=== PATIENT | male | born 1960 ===

== ENCOUNTER 2018-12-17 16:17 | Inpatient (IN) | payer MEDICARE ==
[2018-12-17] MEDS ORDERED: Sodium Chloride 0.9% 1,000 ML IV ONE ×2 (17:08→18:11)
[2018-12-17 17:22] LABS: BASO % 0.5 % (0.0-2.0); EOS # 0.2 K/uL (0.0-0.7); EOS % 3.1 % (0.0-4.0); HEMOGLOBIN 11.3 g/dL (12.0-18.0); LYMPH # 1.9 K/uL (1.0-4.3); LYMPH % 26.1 % (20.0-40.0); MEAN CELL VOLUME 89.9 fL (80.0-94.0); MEAN CORPUSCULAR HEMOGLOBIN 29.8 pg (27.0-31.0); MEAN CORPUSCULAR HGB CONC 33.2 g/dL (33.0-37.0); MEAN PLATELET VOLUME 7.2 fL (7.2-11.7); MONO # 0.7 K/uL (0.0-0.8); MONO % 9.6 % (0.0-10.0); NEUT # 4.4 K/uL (1.8-7.0); NEUT % 60.7 % (50.0-75.0); RBC 3.8 Mil/uL (4.40-5.90); RED CELL DISTRIBUTION WIDTH 14.3 % (11.5-14.5); WHITE BLOOD COUNT 7.2 K/uL (4.8-10.8)
[2018-12-17 17:37] LABS: VENOUS BLOOD GAS BASE EXCESS -5.8 mmol/L (0.0-2.0); VENOUS BLOOD GAS PCO2 40 mmHg (40-60); VENOUS BLOOD GAS PO2 44 mm/Hg (30-55); VENOUS BLOOD PH 7.31 (7.32-7.43)
[2018-12-17 18:06] LABS: ALB/GLOB RATIO 1.2 (1.0-2.1); ALBUMIN 4.4 g/dL (3.5-5.0); CALCIUM 9.4 mg/dl (8.6-10.4)
[2018-12-17] MEDS ORDERED: Calcium Gluconate 4.65 mEq/10 ml Inj IVP ONE (18:07)
[2018-12-17] MEDS ORDERED: (Novolin R) Insulin Human Regular 100 units/ml vial IVP STA (18:08)
[2018-12-17] MEDS ORDERED: (Novolin R) Insulin Human Regular 100 units/ml vial ONE (18:29)
[2018-12-17] MEDS ORDERED: Calcium Gluconate 4.65 mEq/10 ml Inj ONE (18:30)
[2018-12-17] MEDS ORDERED: Sodium Chloride 0.9% 1,000 ML ONE (18:30)
--- NOTE | 2018-12-17 18:59 | C.PDOC ---
History Of Present Illness Patient is a 58 year old male, with a PMHx of diabetes, who presents to the ED by request of his PMD for elevated potassium levels that resulted from bloodwork taken 1 day ago. Patient is c/o mild body weakness. He denies any CP, SOB, fever, cough. Chief Complaint (Nursing): Abnormal Labs History Per: Patient History/Exam Limitations: no limitations Onset/Duration Of Symptoms: Days (1) Current Symptoms Are (Timing): Still Present Recent travel outside of the [place]: No Additional History Per: Patient Past Medical History Reviewed: Historical Data, Nursing Documentation, Vital Signs Vital Signs: Last Vital Signs Temp 97.6 F 12/17/18 18:01 Pulse 87 12/17/18 18:01 Resp 12 12/17/18 18:00 BP 173/73 H 12/17/18 18:01 Pulse Ox 97 12/17/18 18:01 - Medical History PMH: HTN, Hypercholesterolemia Surgical History: No Surg Hx Family History: States: No Known Family Hx - Social History Hx Alcohol Use: No Hx Substance Use: No - Immunization History Hx Tetanus Toxoid Vaccination: Yes Hx Influenza Vaccination: Yes Hx Pneumococcal Vaccination: Yes Review Of Systems Except As Marked, All Systems Reviewed And Found Negative. Constitutional: Positive for: Weakness (mild). Negative for: Fever, Chills Cardiovascular: Negative for: Chest Pain Respiratory: Negative for: Cough, Shortness of Breath Gastrointestinal: Negative for: Vomiting, Abdominal Pain, Diarrhea Physical Exam - Physical Exam Appears: Non-toxic, No Acute Distress Skin: Normal Color, Warm, Dry Head: Atraumatic, Normacephalic Oral Mucosa: Moist Neck: Normal ROM, Supple Chest: Symmetrical, No Deformity Cardiovascular: Rhythm Regular Respiratory: Normal Breath Sounds Gastrointestinal/Abdominal: Normal Exam, Soft, No Tenderness Extremity: Normal ROM, Other (right toe bandage over disital aspect of right foot) Neurological/Psych: Oriented x3, Normal Speech, Normal Cognition ED Course And Treatment - Laboratory Results Result Diagrams: 12/18/18 02:16 12/18/18 02:16 Lab Results: pO2 44 mm/Hg (30-55) 12/17/18 17:34 VBG pH 7.31 (7.32-7.43) L 12/17/18 17:34 VBG pCO2 40 mmHg (40-60) 12/17/18 17:34 VBG HCO3 19.8 mmol/L 12/17/18 17:34 VBG Total CO2 21.3 mmol/L (22-28) L 12/17/18 17:34 VBG O2 Sat (Calc) 81.5 % (40-65) H 12/17/18 17:34 VBG Base Excess -5.8 mmol/L (0.0-2.0) L 12/17/18 17:34 VBG Potassium 7.0 mmol/L (3.6-5.2) H* 12/17/18 17:34 Sodium 132.0 mmol/l (132-148) 12/17/18 17:34 Chloride 103.0 mmol/L (98-107) 12/17/18 17:34 Glucose 517 mg/dl (75-110) H* 12/17/18 17:34 Lactate 1.4 mmol/L (0.7-2.1) 12/17/18 17:34 Crit Value Called To Dr daily 12/17/18 17:34 Crit Value Called By Jason vora 12/17/18 17:34 Crit Value Read Back Y 12/17/18 17:34 Blood Gas Notified Time 1737 12/17/18 17:34 Troponin I < 0.0120 ng/mL (0.00-0.120) 12/17/18 17:59 Total Bilirubin 0.4 mg/dL (0.2-1.3) 12/17/18 17:18 AST 24 U/L (17-59) 12/17/18 17:18 ALT 20 U/L (21-72) L 12/17/18 17:18 Alkaline Phosphatase 134 U/L (38-126) H 12/17/18 17:18 Total Protein 8.1 g/dL (6.3-8.3) 12/17/18 17:18 Albumin 4.4 g/dL (3.5-5.0) 12/17/18 17:18 Globulin 3.7 gm/dL (2.2-3.9) 12/17/18 17:18 Albumin/Globulin Ratio 1.2 (1.0-2.1) 12/17/18 17:18 ECG: Interpreted By Me, Viewed By Me ECG Rhythm: Sinus Rhythm Interpretation Of ECG: Normal axis and normal intervals. Peaked T wave noticed in lateral leads. Rate From EC O2 Sat by Pulse Oximetry: 97 (on RA) Pulse Ox Interpretation: Normal Progress Note: Spoke to and his medical claims examiner, reviewed case. Patient admitted to Dr. Crowley's service under telemetry Critical Care Time - Critical Care Note Total Time (in mins): 60 Documented critical care: time excludes all time spent performing seperately billable procedures. Medical Decision Making Medical Decision Making: Plan: VBG Labs EKG IV Fluids Kayexalate 30gm PO Novolin 8 unit IVP Lasix 20mg IVP Calcium Gluconate 4.65meq IVP Disposition - Disposition Disposition: HOSPITALIZED Disposition Time: 18:15 Condition: GUARDED - Clinical Impression Clinical Impression: Hyperkalemia, Hyperglycemia, Acute renal failure - Scribe Statement The provider has reviewed the documentation as recorded by the Scribnellie Harris All medical record entries made by the Scribe were at my direction and personally dictated by me. I have reviewed the chart and agree that the record accurately reflects my personal performance of the history, physical exam, medical decision making, and the department course for this patient. I have also personally directed, reviewed, and agree with the discharge instructions and disposition.
--- NOTE | 2018-12-17 20:03 | CP.PCM.HP ---
History of Present Illness - History of Present Illness History of Present Illness: H&P for Dr. Crowley HPI: 58 year old male with PMHx of HTN, HLD, CAD with multiple stents, and uncontrolled DM sent to ED by Dr. Crowley due to abnormal lab work taken one day ago. Potassium was noted to be 7.1. Patient states while he was in the ED he had a 2 minute episode of sharp chest pain going across his left chest to the right side. Pain resolved on its own. It was associated with SOB, diaphoresis and felt like previous episodes of chest pain that he's had on several occasions in the past which resulted in cardiac categorizations and stent placements. Patient also complains of chills, headache for the past week, intermittent dizziness, and palpitations today. Patient denies nausea, vomiting, diarrhea, constipation, dysuria, hematuria, new leg swelling, focal weakness, numbness. Patient reports 12 year history of uncontrolled blood sugars that range from 80-600. He also reports recent admission at [facility] 1.5 months ago for chest pain and osteomyelitis of R 2nd toe, which was amputated. He was told then that he needed an additional catheterization and stent placement after his infection resolved. A few days after being discharged from [facility], he again felt chest pain and was taken to [facility] where he was found to have and treated for pleural effusion. He had been at [facility] for the last few weeks and discharged to home on 12/15/18. PMHx: CAD with 3 stents, uncontrolled DM, HTN, HLD, osteomyelitis (treated) PSHx: 5-6 cardiac catheteriztions with 3 stents placed, b/l cataract surgery, R 2nd toe amputation, L 1st toe surgery Meds: Asa 81 PO daily, Plavix 75mg PO daily, Enulose 30ml PO Q12H PRN c onstipation, Ezetimibe 10mg PO HS, Humalog 5u SC AC, Detemir 40u SC HS, Duonebs Q4H SOB, Isosorbide mononitrate 60mg O daily, Metoprolol succinate 25mg PO daily, Protonix 40mg daily, Ranolazine 500mg BID. Humalog Sliding scale Allergies: NKDA FamHx: All 10 brothers and sisters have heart problems: CABG, stents, pacemakers; Mother of CHF SocHx: smoked 1/2ppd for 25 years, quit 1.5 months ago, denies illicit drugs and alcohol. Lives with a brother in [place]. Proxy: Brothers- Logan Carlos [phone]; Pepe Carlos [phone] PMD: Dr. Crowley, Dr. Sotelo, cardio Review of Systems: -Gen: No fever, + chills, No headache, No lethargy, No weakness. -HEENT: + dizziness, No change in vision, No change in hearing, No sore throat, No dysphagia, No nasal congestion, No mucous. -Cardio: + chest pain, No palpitations, No lower extremity edema, No orthopnea. -Resp: No cough, + dyspnea, No hemoptysis, No wheezing, No pain on inspiration. -GI: No abdominal pain, No nausea/vomiting, No diarrhea/constipation, No hematochezia, No hematemesis. -: No dysuria, No urinary freq, No incontinence, No hematuria, No change in urinary stream. -MSK: No back pain, No muscle weakness, No radiating pain. -Skin: No itching, No rash, No lesions. -Neuro: +headache, No confusion, No numbness, No tingling, No focal weakness, No radicular pain, No syncope. Present on Admission - Present on Admission Any Indicators Present on Admission: Yes History of Uncontrolled Diabetes: Yes Past Patient History - Past Social History Smoking Status: Former Smoker - CARDIAC Hx Hypercholesterolemia: Yes Hx Hypertension: Yes - ENDOCRINE/METABOLIC Hx Diabetes Mellitus Type 1: Yes - PSYCHIATRIC Hx Substance Use: No - SURGICAL HISTORY Hx Surgeries: Yes Hx Amputation: Yes (2nd right toe) Hx Cardiac Catheterization: Yes - ANESTHESIA Hx Anesthesia: Yes Hx Anesthesia Reactions: No Meds Allergies/Adverse Reactions: Allergies Allergy/AdvReac Type Severity Reaction Status Date / Time No Known Allergies Allergy Verified 12/17/18 16:38 Physical Exam - Constitutional Appears: Non-toxic, No Acute Distress - Head Exam Head Exam: ATRAUMATIC, NORMOCEPHALIC - Eye Exam Eye Exam: EOMI, Normal appearance, PERRL - ENT Exam ENT Exam: Mucous Membranes Moist - Neck Exam Neck exam: Positive for: Full Rom, Normal Inspection - Respiratory Exam Respiratory Exam: Decreased Breath Sounds (more pronounced bilateral bases), Clear to Auscultation Bilateral. absent: Chest Wall Tenderness, Rales, Rhonchi, Wheezes - Cardiovascular Exam Cardiovascular Exam: REGULAR RHYTHM, +S1, +S2 - GI/Abdominal Exam GI & Abdominal Exam: Normal Bowel Sounds, Soft. absent: Distended, Guarding, Rebound, Tenderness - Extremities Exam Extremities exam: Negative for: pedal edema, tenderness Additional comments: R 2nd toe amputation, abrasion to lateral R 5th toe. Healed surgical scar to L 1st toe. Palpable DP on the L. dry skin bilateral feet. No calf tenderness. - Neurological Exam Neurological exam: Alert, CN II-XII Intact, Oriented x3 - Psychiatric Exam Psychiatric exam: Flat Affect - Skin Skin Exam: Dry, Intact, Warm Results - Vital Signs Recent Vital Signs: Last Vital Signs Temp 97.6 F 12/17/18 18:01 Pulse 83 12/17/18 19:05 Resp 12 12/17/18 19:05 BP 164/80 H 12/17/18 19:05 Pulse Ox 97 12/17/18 19:06 - Labs Result Diagrams: 12/17/18 17:18 12/17/18 20:39 Labs: Laboratory Results - last 24 hr 12/17/18 12/17/18 12/17/18 16:35 17:18 17:18 WBC 7.2 RBC 3.80 L Hgb 11.3 L Hct 34.2 L MCV 89.9 MCH 29.8 MCHC 33.2 RDW 14.3 Plt Count 351 MPV 7.2 Neut % (Auto) 60.7 Lymph % (Auto) 26.1 [place] % (Auto) 9.6 Eos % (Auto) 3.1 Baso % (Auto) 0.5 Neut # (Auto) 4.4 Lymph # (Auto) 1.9 [place] # (Auto) 0.7 Eos # (Auto) 0.2 Baso # (Auto) 0.0 pO2 VBG pH VBG pCO2 VBG HCO3 VBG Total CO2 VBG O2 Sat (Calc) VBG Base Excess VBG Potassium Glucose Lactate Crit Value Called To Crit Value Called By Crit Value Read Back Blood Gas Notified Time Sodium 133 Potassium 7.1 H* Chloride 103 Carbon Dioxide 22 Anion Gap 15 BUN 38 H Creatinine 1.8 H Est GFR ( Amer) 47 Est GFR (Non-Af Amer) 39 POC Glucose (mg/dL) > 500 H* Random Glucose 554 H* Calcium 9.4 Total Bilirubin 0.4 AST 24 ALT 20 L Alkaline Phosphatase 134 H Troponin I Total Protein 8.1 Albumin 4.4 Globulin 3.7 Albumin/Globulin Ratio 1.2 Venous Blood Potassium B-Hydroxybutyrate 0.09 12/17/18 12/17/18 17:34 17:59 WBC RBC Hgb Hct MCV MCH MCHC RDW Plt Count MPV Neut % (Auto) Lymph % (Auto) [place] % (Auto) Eos % (Auto) Baso % (Auto) Neut # (Auto) Lymph # (Auto) [place] # (Auto) Eos # (Auto) Baso # (Auto) pO2 44 VBG pH 7.31 L VBG pCO2 40 VBG HCO3 19.8 VBG Total CO2 21.3 L VBG O2 Sat (Calc) 81.5 H VBG Base Excess -5.8 L VBG Potassium 7.0 H* Glucose 517 H* Lactate 1.4 Crit Value Called To Dr daily Crit Value Called By Jason vora Crit Value Read Back Y Blood Gas Notified Time 1737 Sodium 132.0 Potassium Chloride 103.0 Carbon Dioxide Anion Gap BUN Creatinine Est GFR ( Amer) Est GFR (Non-Af Amer) POC Glucose (mg/dL) Random Glucose Calcium Total Bilirubin AST ALT Alkaline Phosphatase Troponin I < 0.0120 Total Protein Albumin Globulin Albumin/Globulin Ratio Venous Blood Potassium 7.0 H* B-Hydroxybutyrate Assessment & Plan - Assessment and Plan (Free Text) Plan: 58 year old male admitted for hyperkalemia, BRONSON, and hyperglycemia Hyperkalemia-improving 7.1 on admission--> 4.6 EKG: NSR, flipped T waves in AVR, v1, peaked T waves in lateral leads JOSUE x1 negative, f/u serial in ED: Lasix 20mg IVP, Calcium gluconate, Kayexalate 30mg PO F/u AM labs BRONSON-improving Cr. 1.8 on admission--> 1.5 2L NS bolus in ED 1/2NS @ 100mls/hr F/u AM labs Hyperglycemia Hx of DM Glucose on admission: 554 8 units Insulin given in ED Blood gas pH 7.31, Bicarb 22, B-hydroxybutyrate negative Home med Levemir 40u SC HS Home med Lispro-> aspart 5u SC AC Aspart sliding scale Q4H Accuchecks Q4H Hypogylycemia protocol Hx CAD with stent placement Home med Aspirin 81mg daily Home med Plavix 75mg daily Home med isosorbide mononitrate 60mg daily Home med Ranolazine 500mg PO BID Hx HTN Home med Metoprolol succinate 25mg QD Hx HLD Home med Ezetimibe 10mg PO daily Hx Constipation Home med Enulose 20gm Po Q12H PRN Hx GERD Home med Protonix 40mg PO daily Hx Osteomyelitis/R 2nd toe amputation Tylenol 650 PRN pain PPx Heparin 5000u Q8H HH/CCD Discussed with Dr. Carline Mejia, PGY-1
[2018-12-17] MEDS ORDERED: Dextrose 50% SYRINGE Inj (50 ml) IV PRN (20:09)
[2018-12-17] MEDS ORDERED: Glucagon Recombinant 1 mg Inj IM PRN (20:09)
[2018-12-17] MEDS ORDERED: Albuterol-Ipratrop 3 mg / 0.5 (3 ml) UD INH PRN (20:11)
[2018-12-17] MEDS: Sodium Chloride 0.45% 1,000 ML IV SCH (21:06)
[2018-12-17] MEDS: Insulin Detemir 100 units/ml Vial (Levemir) SC SCH (21:11)
[2018-12-17 21:13] LABS: BLOOD UREA NITROGEN 36 mg/dL (9-20); CALCIUM 9.1 mg/dl (8.6-10.4); GFR NON-AFRICAN AMERICAN 48
[2018-12-17 21:18] LABS: CK-MB 1.88 ng/mL (0.0-3.38)
[2018-12-17] MEDS: (Novolog) Insulin Aspart, Recombinant 100 u/ml 10 ml vial SC SCH (22:29)
[2018-12-18] MEDS: (Novolog) Insulin Aspart, Recombinant 100 u/ml 10 ml vial SC SCH ×9 (00:27→21:30)
[2018-12-18 02:21] LABS: BASO % 0.4 % (0.0-2.0); EOS # 0.2 K/uL (0.0-0.7); EOS % 3.6 % (0.0-4.0); HEMOGLOBIN 10.2 g/dL (12.0-18.0); LYMPH # 2.3 K/uL (1.0-4.3); LYMPH % 38.4 % (20.0-40.0); MEAN CELL VOLUME 88.4 fL (80.0-94.0); MEAN CORPUSCULAR HEMOGLOBIN 30.7 pg (27.0-31.0); MEAN CORPUSCULAR HGB CONC 34.8 g/dL (33.0-37.0); MEAN PLATELET VOLUME 7.2 fL (7.2-11.7); MONO # 0.5 K/uL (0.0-0.8); MONO % 9.1 % (0.0-10.0); NEUT # 2.9 K/uL (1.8-7.0); NEUT % 48.5 % (50.0-75.0); NRBC % 0.1 % (0.0-2.0); RBC 3.31 Mil/uL (4.40-5.90); RED CELL DISTRIBUTION WIDTH 13.9 % (11.5-14.5)
[2018-12-18 02:28] LABS: PROTHROMBIN TIME 10.9 SECONDS (9.7-12.2)
[2018-12-18 02:47] LABS: CK-MB 1.55 ng/mL (0.0-3.38)
[2018-12-18 02:54] LABS: ALB/GLOB RATIO 1.2 (1.0-2.1); ALBUMIN 3.7 g/dL (3.5-5.0); ALT/SGPT 20 U/L (21-72); AST/SGOT 18 U/L (17-59); BLOOD UREA NITROGEN 33 mg/dL (9-20); GFR NON-AFRICAN AMERICAN 48
[2018-12-18] MEDS: Sodium Chloride 0.45% 1,000 ML IV SCH ×2 (05:54→18:06)
--- NOTE | 2018-12-18 07:30 | CP.PCM.PN ---
Subjective - Date & Time of Evaluation Date of Evaluation: 12/18/18 Time of Evaluation: 07:45 - Subjective Subjective: Medicine progress note for Dr. Crowley. Patient seen and examined at bedside. Overnight patient blood sugars at 70-80s. Responded well to juice. This AM patient reports some chest pain, reproducible upon touching. Denies SOB, radiation of pain, nausea, vomiting, fevers ,chills. Objective - Vital Signs/Intake and Output Vital Signs (last 24 hours): Temp Pulse Resp BP Pulse Ox 97.6 F 75 20 139/70 96 12/18/18 04:30 12/18/18 04:30 12/18/18 04:30 12/18/18 04:30 12/18/18 04:30 Intake and Output: 12/18/18 12/18/18 06:59 18:59 Intake Total 1480 Output Total 400 Balance 1080 - Medications Medications: Current Medications Acetaminophen (Tylenol 325mg Tab) 650 mg PO Q6 PRN PRN Reason: Pain, moderate (4-7) Last Admin: 12/18/18 05:58 Dose: 650 mg Albuterol/Ipratropium (Duoneb 3 Mg/0.5 Mg (3 Ml) Ud) 3 ml INH RQ4 PRN PRN Reason: Shortness of Breath Aspirin (Aspirin Chewable) 81 mg PO DAILY [facility] Last Admin: 12/17/18 21:06 Dose: 81 mg Clopidogrel Bisulfate (Plavix) 75 mg PO DAILY [facility] Dextrose (Dextrose 50% Inj) 0 ml IV STAT PRN; Protocol PRN Reason: Hypoglycemia Protocol Dextrose (Glutose 15) 0 gm PO ONCE PRN; Protocol PRN Reason: Hypoglycemia Protocol Ezetimibe (Zetia) 10 mg PO DAILY [facility] Glucagon (Glucagen Diagnostic Kit) 0 mg IM STAT PRN; Protocol PRN Reason: Hypoglycemia Protocol Heparin Sodium (Porcine) (Heparin) 5,000 units SC Q8 [facility] Last Admin: 12/18/18 05:53 Dose: 5,000 units Dextrose (Dextrose 5% In Water 1000 Ml) 1,000 mls @ 0 mls/hr IV .Q0M PRN; Protocol PRN Reason: Hypoglycemia Protocol Sodium Chloride (Sodium Chloride 0.45%) 1,000 mls @ 100 mls/hr IV .Q10H [facility] Last Admin: 12/18/18 05:54 Dose: 100 mls/hr Insulin Aspart (Novolog) 5 unit SC TIDAC [facility] Insulin Aspart (Novolog) 0 unit SC Q4 [facility]; Protocol Last Admin: 12/18/18 04:57 Dose: Not Given Insulin Detemir (Levemir) 40 unit SC HS [facility] Last Admin: 12/17/18 21:11 Dose: 40 units Isosorbide Mononitrate (Imdur) 60 mg PO DAILY [facility] Lactulose (Enulose) 20 gm PO Q12H PRN PRN Reason: Constipation Metoprolol Succinate (Toprol Xl) 25 mg PO DAILY [facility] Ranolazine (Ranexa) 500 mg PO BID [facility] - Labs Labs: 12/18/18 02:16 12/18/18 02:16 PT 10.9 SECONDS (9.7-12.2) 12/18/18 02:16 INR 1.0 12/18/18 02:16 APTT 38 SECONDS (21-34) H 12/18/18 02:16 - Constitutional Appears: Non-toxic, No Acute Distress - Head Exam Head Exam: NORMAL INSPECTION - Eye Exam Eye Exam: EOMI, Normal appearance - ENT Exam ENT Exam: Mucous Membranes Moist - Respiratory Exam Respiratory Exam: Clear to Ausculation Bilateral, NORMAL BREATHING PATTERN. absent: Rales, Rhonchi, Wheezes - Cardiovascular Exam Cardiovascular Exam: +S1, +S2 Additional comments: focal pain on intercoastal space 4, denies SOB - GI/Abdominal Exam GI & Abdominal Exam: Soft, Normal Bowel Sounds - Extremities Exam Extremities Exam: Full ROM, Normal Inspection. absent: Calf Tenderness, Pedal Edema Additional comments: R foot in wrapped, recent OM surgery, dressing clean dry, intact - Back Exam Back Exam: absent: CVA tenderness (L), CVA tenderness (R) - Neurological Exam Neurological Exam: Alert, Awake, Oriented x3 - Psychiatric Exam Psychiatric exam: Normal Affect, Normal Mood - Skin Skin Exam: Dry, Intact, Normal Color, Warm Assessment and Plan - Assessment and Plan (Free Text) Assessment: 58 year old male admitted for hyperkalemia, BRONSON, and hyperglycemia; BRONSON, hype rkalemia, hyperglycemia resolved, pending cardio eval for chest pain Plan: Chest pain troponins x 3 negative hx of CAD w/ stents pain currently reproducible, msk vs cardiac origin f/u cardio, Dr. Deepak tubbs Hyperkalemia-resolved 7.1 on admission--> 4.6 EKG: NSR, v1, peaked T waves in lateral leads JOSUE x3 negative Lasix 20mg IVP, Calcium gluconate, Kayexalate 30mg PO given BRONSON-resolved Cr. 1.8 on admission--> 1.5 1/2NS @ 100mls/hr 2 L bolus given in ED Hyperglycemia Hx of DM Glucose on admission: 554 8 units Insulin given in ED Blood gas pH 7.31, Bicarb 22, B-hydroxybutyrate negative c/w home med Levemir 40u SC HS c/w home med Lispro-> aspart 5u SC AC Glucose O.N in 70s Aspart sliding scale achs Accuchecks achs Hypogylycemia protocol Hx CAD with stent placement c/w home med Aspirin 81mg daily c/w home med Plavix 75mg daily c/w home med isosorbide mononitrate 60mg daily c/w home med Ranolazine 500mg PO BID Hx HTN c/w home med Metoprolol succinate 25mg QD Hx HLD c/w home med Ezetimibe 10mg PO daily Hx Constipation c/w home med Enulose 20gm Po Q12H PRN Hx GERD c/w home med Protonix 40mg PO daily Hx Osteomyelitis/R 2nd toe amputation Tylenol 650 PRN pain PPx Heparin 5000u Q8H HH/CCD
[2018-12-18 08:28] LABS: CK-MB 1.49 ng/mL (0.0-3.38)
[2018-12-18] MEDS: Metoprolol Succinate 25 mg XL Tab PO SCH (09:16)
[2018-12-18] MEDS: Ranolazine 500 mg Extended Release Tablets PO SCH ×2 (09:17→18:12)
--- NOTE | 2018-12-18 10:50 | CARD ---
APPROVED REPORT Date of service: 12/17/2018 EKG Measurement Heart [id number] <Conclusion> Normal sinus rhythm Normal ECG
--- NOTE | 2018-12-18 10:51 | CARD ---
APPROVED REPORT Date of service: 12/17/2018 EKG Measurement Heart [id number] <Conclusion> Normal sinus rhythm Septal infarct, age undetermined Abnormal ECG
--- NOTE | 2018-12-18 11:44 | CP.PCM.PN ---
<Shiv Umana - Last Filed: 12/18/18 17:30> Subjective - Date & Time of Evaluation Date of Evaluation: 12/18/18 Time of Evaluation: 11:44 - Subjective Subjective: Cardiology Progress Note for Dr. Sotelo Patient is a 58 y/o male with a PMHx of DM and HTN that presents for hyperkalemia and chest pain. Patient was told to come in for his elevated potassium by his PMD Dr. Beasely. He comments that he has been experiencing non radiating intermittent left sided chest pain for the past several months. He comments that the pain is normally rated at a 5/10 and generally starts as chest pressure that lasts for approximately a minute with residual pain that lasts up to an hour after each episode. Patient attempted to take tylenol to alleviate his symptoms but he doesn't believe it helped his symptoms. He denies any hearing changes, dizziness, dysphagia, odynophagia, coughing, wheezing, nausea, vomiting, diarrhea, constipation, upper extremity weakness, or lower extremity weakness. He attests to experiencing subjecting fevers and chills with associated profuse diaphoresis, headaches, vision changes that he describes as experiencing seeing bright white lights that impair his vision for over a year chest pain, palpitations, shortness of breath? associated with the chest pain, and nocturnal dyspnea. PMHx: HTN, DM PSHx: TCardiac cath 4 weeks ago (demonstrated 2 vessel disease), 3 stents placed more than a year ago at [facility], chest tube placement for removal of fluid in lungs FMHx: Mother ( at 72) DM and open heart surgery, father ( at 62 from cancer) Medications: Asa 81 mg PO QD, Plavix 75mg PO QD, enulose 30mL POq12 PRN, ezetimbe 10mg PO, humalog 5u SC, detemir 40u SC, duonebs Q4H, isosorbide mononitrate 60mg, metoprolol succinate 25mg PO QD, protonix 40 mg QD, ranolazine 500mg BID, humalog sliding scale. Allergies: NKDA Social: Denies tobacco use currently (smoked 1pack every 2 days for 25 years), denies drinking, denies illicit drug use? Objective - Vital Signs/Intake and Output Vital Signs (last 24 hours): Temp Pulse Resp BP Pulse Ox 97.8 F 76 20 132/74 97 12/18/18 07:00 12/18/18 07:30 12/18/18 07:00 12/18/18 07:00 12/18/18 11:08 Intake and Output: 12/18/18 12/18/18 06:59 18:59 Intake Total 1480 Output Total 400 Balance 1080 - Medications Medications: Current Medications Acetaminophen (Tylenol 325mg Tab) 650 mg PO Q6 PRN PRN Reason: Pain, moderate (4-7) Last Admin: 12/18/18 05:58 Dose: 650 mg Albuterol/Ipratropium (Duoneb 3 Mg/0.5 Mg (3 Ml) Ud) 3 ml INH RQ4 PRN PRN Reason: Shortness of Breath Aspirin (Aspirin Chewable) 81 mg PO DAILY [facility] Last Admin: 12/18/18 09:16 Dose: 81 mg Clopidogrel Bisulfate (Plavix) 75 mg PO DAILY [facility] Last Admin: 12/18/18 09:16 Dose: 75 mg Dextrose (Dextrose 50% Inj) 0 ml IV STAT PRN; Protocol PRN Reason: Hypoglycemia Protocol Dextrose (Glutose 15) 0 gm PO ONCE PRN; Protocol PRN Reason: Hypoglycemia Protocol Ezetimibe (Zetia) 10 mg PO DAILY [facility] Last Admin: 12/18/18 09:17 Dose: 10 mg Glucagon (Glucagen Diagnostic Kit) 0 mg IM STAT PRN; Protocol PRN Reason: Hypoglycemia Protocol Heparin Sodium (Porcine) (Heparin) 5,000 units SC Q8 [facility] Last Admin: 12/18/18 05:53 Dose: 5,000 units Dextrose (Dextrose 5% In Water 1000 Ml) 1,000 mls @ 0 mls/hr IV .Q0M PRN; Protocol PRN Reason: Hypoglycemia Protocol Sodium Chloride (Sodium Chloride 0.45%) 1,000 mls @ 100 mls/hr IV .Q10H [facility] Last Admin: 12/18/18 05:54 Dose: 100 mls/hr Insulin Aspart (Novolog) 5 unit SC TIDAC [facility] Last Admin: 12/18/18 08:26 Dose: Not Given Insulin Aspart (Novolog) 0 unit SC Q4 REA; Protocol Last Admin: 12/18/18 08:26 Dose: Not Given Insulin Detemir (Levemir) 40 unit SC HS [facility] Last Admin: 12/17/18 21:11 Dose: 40 units Isosorbide Mononitrate (Imdur) 60 mg PO DAILY [facility] Last Admin: 12/18/18 09:16 Dose: 60 mg Lactulose (Enulose) 20 gm PO Q12H PRN PRN Reason: Constipation Metoprolol Succinate (Toprol Xl) 25 mg PO DAILY [facility] Last Admin: 12/18/18 09:16 Dose: 25 mg Ranolazine (Ranexa) 500 mg PO BID [facility] Last Admin: 12/18/18 09:17 Dose: 500 mg - Labs Labs: 12/18/18 02:16 12/18/18 02:16 PT 10.9 SECONDS (9.7-12.2) 12/18/18 02:16 INR 1.0 12/18/18 02:16 APTT 38 SECONDS (21-34) H 12/18/18 02:16 - Constitutional Appears: Well, Non-toxic, No Acute Distress - Head Exam Head Exam: ATRAUMATIC, NORMAL INSPECTION, NORMOCEPHALIC - Eye Exam Eye Exam: EOMI, Normal appearance - ENT Exam ENT Exam: Mucous Membranes Dry - Respiratory Exam Respiratory Exam: Chest Wall Tenderness, Decreased Breath Sounds, Clear to Ausculation Bilateral - Cardiovascular Exam Cardiovascular Exam: +S1, +S2 - Extremities Exam Extremities Exam: Normal Capillary Refill. absent: Pedal Edema - Neurological Exam Neurological Exam: Alert, Awake, Oriented x3 - Psychiatric Exam Psychiatric exam: Normal Affect, Normal Mood - Skin Skin Exam: Dry, Intact, Normal Color, Warm Assessment and Plan - Assessment and Plan (Free Text) Assessment: 58 y/o male with a PMHx of DM and HTN that presents for hyperkalemia and chest pain. Patient was told to come in for his elevated potassium by his PMD Dr. Beasley. Cardiology consulted for Hyperkalemia, chest pain, and hx of CAD. Plan: Chest Pain/SOB ECHO and EKG unremarkable. Chest pain is reproducible. Troponins NEgative x 4, SOB improved Like MSK Etiology To be discussed with Dr. Deepak Umana, PGY-2 <Roel Sotelo - Last Filed: 12/19/18 22:35> Objective - Vital Signs/Intake and Output Vital Signs (last 24 hours): Temp Pulse Resp BP Pulse Ox 98.2 F 83 20 163/79 H 98 12/19/18 15:00 12/19/18 16:00 12/19/18 15:00 12/19/18 15:00 12/19/18 15:00 - Medications Medications: Current Medications Acetaminophen (Tylenol 325mg Tab) 650 mg PO Q6 PRN PRN Reason: Pain, moderate (4-7) Last Admin: 12/18/18 05:58 Dose: 650 mg Albuterol/Ipratropium (Duoneb 3 Mg/0.5 Mg (3 Ml) Ud) 3 ml INH RQ4 PRN PRN Reason: Shortness of Breath Aspirin (Aspirin Chewable) 81 mg PO DAILY [facility] Last Admin: 12/19/18 08:59 Dose: 81 mg Clopidogrel Bisulfate (Plavix) 75 mg PO DAILY [facility] Last Admin: 12/19/18 08:59 Dose: 75 mg Dextrose (Dextrose 50% Inj) 0 ml IV STAT PRN; Protocol PRN Reason: Hypoglycemia Protocol Dextrose (Glutose 15) 0 gm PO ONCE PRN; Protocol PRN Reason: Hypoglycemia Protocol Ezetimibe (Zetia) 10 mg PO DAILY [facility] Last Admin: 12/19/18 08:59 Dose: 10 mg Glucagon (Glucagen Diagnostic Kit) 0 mg IM STAT PRN; Protocol PRN Reason: Hypoglycemia Protocol Heparin Sodium (Porcine) (Heparin) 5,000 units SC Q8 [facility] Last Admin: 12/19/18 22:05 Dose: Not Given Dextrose (Dextrose 5% In Water 1000 Ml) 1,000 mls @ 0 mls/hr IV .Q0M PRN; Protocol PRN Reason: Hypoglycemia Protocol Insulin Aspart (Novolog) 5 unit SC TIDAC [facility] Last Admin: 12/19/18 16:59 Dose: 5 units Insulin Aspart (Novolog) 0 unit SC Q4 [facility]; Protocol Last Admin: 12/19/18 20:01 Dose: Not Given Insulin Detemir (Levemir) 40 unit SC HS [facility] Last Admin: 12/19/18 22:03 Dose: 40 units Isosorbide Mononitrate (Imdur) 60 mg PO DAILY [facility] Last Admin: 12/19/18 09:00 Dose: 60 mg Lactulose (Enulose) 20 gm PO Q12H PRN PRN Reason: Constipation Metoprolol Succinate (Toprol Xl) 25 mg PO DAILY [facility] Last Admin: 12/19/18 09:00 Dose: 25 mg Ranolazine (Ranexa) 500 mg PO BID [facility] Last Admin: 12/19/18 18:00 Dose: 500 mg - Labs Labs: 12/19/18 07:46 12/19/18 11:15 PT 10.9 SECONDS (9.7-12.2) 12/18/18 02:16 INR 1.0 12/18/18 02:16 APTT 38 SECONDS (21-34) H 12/18/18 02:16 Assessment and Plan - Assessment and Plan (Free Text) Plan: Patient seen and evaluated personally by me. Plan of care d/w the rn medical surgical Patient for stress test on Friday
--- NOTE | 2018-12-18 14:56 | CARD ---
APPROVED REPORT Date of service: 12/18/2018 EXAM: Two-dimensional and M-mode echocardiogram with Doppler and color Doppler. INDICATION CAD RISK FACTORS Diabetes 2D DIMENSIONS IVSd1.1 (0.7-1.1cm)Aortic Root (2D)2.7 (2.0-3.7cm) LVDd3.9 (3.9-5.9cm)PWd1.2 (0.7-1.1cm) LA Bldlxu60 (18-58mL)LVDs3.0 (2.5-4.0cm) FS (%) 23.8 %LVEF (%)48.0 (>50%) M-Mode DIMENSIONS RVDd2.03 (2.1-3.2cm)Left Atrium (MM)4.07 (2.5-4.0cm) IVSd1.00 (0.7-1.1cm)Aortic Root2.67 (2.2-3.7cm) LVDd4.13 (4.0-5.6cm)Aortic Cusp Exc.1.55 (1.5-2.0cm) PWd1.00 (0.7-1.1cm)FS (%) 29 % LVDs2.95 (2.0-3.8cm)LVEF (%)56 (>50%) Aortic Valve AoV Peak Qjjkpwhc461.0cm/Mark Peak GR.6mmHg Mitral Valve MV E Rfgdwzet45.3cm/sMV A Dthxsjuq01.2cm/sE/A ratio0.7 TDI Lateral E' Peak V7.77cm/sMedial E' Peak V6.67cm/sE/Lateral E'6.1 E/Medial E'7.1 Tricuspid Valve TR Peak Fkdwzgqx357ad/sTR Peak Gr.09opUsUCCX13lqKf LEFT VENTRICLE The left ventricle is normal size. There is normal left ventricular wall thickness. The left ventricular function is normal. The left ventricular ejection fraction is within the normal range. No regional wall motion abnormalities noted. The left ventricular diastolic function is normal. No left ventricle thrombus noted on this study. There is no ventricular septal defect visualized. There is no left ventricular aneurysm. There is no mass noted in the left ventricle. RIGHT VENTRICLE The right ventricle is normal size. There is normal right ventricular wall thickness. The right ventricular systolic function is normal. ATRIA The left atrium size is normal. The right atrium size is normal. The interatrial septum is intact with no evidence for an atrial septal defect. AORTIC VALVE The aortic valve is normal in structure and function. No aortic regurgitation is present. There is no aortic valvular stenosis. There is no aortic valvular vegetation. MITRAL VALVE The mitral valve is normal in structure and function. There is no evidence of mitral valve prolapse. There is no mitral valve stenosis. There is no mitral valve regurgitation noted. TRICUSPID VALVE The tricuspid valve is normal in structure and function. There is no tricuspid valve regurgitation noted. There is no tricuspid valve prolapse or vegetation. There is no tricuspid valve stenosis. PULMONIC VALVE The pulmonary valve is normal in structure and function. There is no pulmonic valvular regurgitation. There is no pulmonic valvular stenosis. GREAT VESSELS The aortic root is normal in size. The ascending aorta is normal in size. The pulmonary artery is normal. The IVC is normal in size and collapses >50% with inspiration. PERICARDIAL EFFUSION The pericardium appears normal. There is no pleural effusion. <Conclusion> The left ventricular function is normal. The left ventricular ejection fraction is within the normal range. No regional wall motion abnormalities noted.
[2018-12-18] MEDS: Insulin Detemir 100 units/ml Vial (Levemir) SC SCH (22:00)
[2018-12-19] MEDS: (Novolog) Insulin Aspart, Recombinant 100 u/ml 10 ml vial SC SCH ×9 (00:28→20:01)
[2018-12-19] MEDS: Sodium Chloride 0.45% 1,000 ML IV SCH ×2 (04:08→13:26)
--- NOTE | 2018-12-19 07:40 | CP.PCM.PN ---
Subjective - Date & Time of Evaluation Date of Evaluation: 12/19/18 Time of Evaluation: 08:00 - Subjective Subjective: Medicine Progress Note for Dr. Crowley: Patient was seen and examined at bedside in the AM. Patient states he is feeling well. Patient denies chest pain, shortness of breath, nausea, vomiting, fever or chills. Objective - Vital Signs/Intake and Output Vital Signs (last 24 hours): Temp Pulse Resp BP Pulse Ox 97.8 F 77 20 150/69 99 12/18/18 23:35 12/19/18 03:59 12/18/18 23:35 12/18/18 23:35 12/18/18 23:35 Intake and Output: 12/19/18 12/19/18 06:59 18:59 Intake Total 400 Output Total 800 Balance -400 - Medications Medications: Current Medications Acetaminophen (Tylenol 325mg Tab) 650 mg PO Q6 PRN PRN Reason: Pain, moderate (4-7) Last Admin: 12/18/18 05:58 Dose: 650 mg Albuterol/Ipratropium (Duoneb 3 Mg/0.5 Mg (3 Ml) Ud) 3 ml INH RQ4 PRN PRN Reason: Shortness of Breath Aspirin (Aspirin Chewable) 81 mg PO DAILY [facility] Last Admin: 12/18/18 09:16 Dose: 81 mg Clopidogrel Bisulfate (Plavix) 75 mg PO DAILY [facility] Last Admin: 12/18/18 09:16 Dose: 75 mg Dextrose (Dextrose 50% Inj) 0 ml IV STAT PRN; Protocol PRN Reason: Hypoglycemia Protocol Dextrose (Glutose 15) 0 gm PO ONCE PRN; Protocol PRN Reason: Hypoglycemia Protocol Ezetimibe (Zetia) 10 mg PO DAILY [facility] Last Admin: 12/18/18 09:17 Dose: 10 mg Glucagon (Glucagen Diagnostic Kit) 0 mg IM STAT PRN; Protocol PRN Reason: Hypoglycemia Protocol Heparin Sodium (Porcine) (Heparin) 5,000 units SC Q8 [facility] Last Admin: 12/19/18 05:46 Dose: 5,000 units Dextrose (Dextrose 5% In Water 1000 Ml) 1,000 mls @ 0 mls/hr IV .Q0M PRN; Protocol PRN Reason: Hypoglycemia Protocol Sodium Chloride (Sodium Chloride 0.45%) 1,000 mls @ 100 mls/hr IV .Q10H [facility] Last Admin: 12/19/18 04:08 Dose: 100 mls/hr Insulin Aspart (Novolog) 5 unit SC TIDAC [facility] Last Admin: 12/18/18 17:30 Dose: 5 units Insulin Aspart (Novolog) 0 unit SC Q4 [facility]; Protocol Last Admin: 12/19/18 07:13 Dose: Not Given Insulin Detemir (Levemir) 40 unit SC HS [facility] Last Admin: 12/18/18 22:00 Dose: 40 units Isosorbide Mononitrate (Imdur) 60 mg PO DAILY [facility] Last Admin: 12/18/18 09:16 Dose: 60 mg Lactulose (Enulose) 20 gm PO Q12H PRN PRN Reason: Constipation Metoprolol Succinate (Toprol Xl) 25 mg PO DAILY [facility] Last Admin: 12/18/18 09:16 Dose: 25 mg Ranolazine (Ranexa) 500 mg PO BID [facility] Last Admin: 12/18/18 18:12 Dose: 500 mg - Labs Labs: 12/18/18 02:16 12/18/18 02:16 PT 10.9 SECONDS (9.7-12.2) 12/18/18 02:16 INR 1.0 12/18/18 02:16 APTT 38 SECONDS (21-34) H 12/18/18 02:16 - Constitutional Appears: No Acute Distress - Head Exam Head Exam: ATRAUMATIC, NORMAL INSPECTION - Eye Exam Eye Exam: EOMI, Normal appearance - ENT Exam ENT Exam: Mucous Membranes Moist - Respiratory Exam Respiratory Exam: Clear to Ausculation Bilateral, NORMAL BREATHING PATTERN - Cardiovascular Exam Cardiovascular Exam: REGULAR RHYTHM, +S1, +S2 - GI/Abdominal Exam GI & Abdominal Exam: Soft, Normal Bowel Sounds. absent: Tenderness - Extremities Exam Extremities Exam: Normal Inspection - Neurological Exam Neurological Exam: Alert, Awake, Oriented x3 - Psychiatric Exam Psychiatric exam: Normal Affect, Normal Mood - Skin Skin Exam: Normal Color Assessment and Plan - Assessment and Plan (Free Text) Assessment: 58 year old male admitted for hyperkalemia, BRONSON, and hyperglycemia; BRONSON, hyper kalemia, hyperglycemia resolved who presented to the ER for chest pain. Plan: Chest pain - troponins x 4 negative - hx of CAD w/ 3 stents - ProBNP 354 - ECHO (12/18/18): EF 48%; Left ventricular function is normal. No regional wall motion abnormalities noted. - Cardiology Consult: Dr. Sotelo --> help appreciated * Nuclear Stress Test 12/21/18 * NPO after midnight 12/20/18 History of CAD with stent placement - Cardiology Consult: Dr. Sotelo --> help appreciated * Nuclear Stress Test 12/21/18 * NPO after midnight 12/20/18 - Medications: * Aspirin 81mg daily * Plavix 75mg daily * isosorbide mononitrate 60mg daily * Ranolazine 500mg PO BID History of Diabetes Type II - Blood gas pH 7.31, Bicarb 22, B-hydroxybutyrate negative - Medications: * Levemir 40u SC HS * Novolog 5units SC TIDAC * Regular Insulin ACHS - Accuchecks achs - Hypogylycemia protocol History of HTN - Metoprolol succinate 25mg QD History of HLD - Continue Ezetimibe 10mg PO daily Hyperkalemia -resolved - 7.1 on admission--> 4.6 - EKG: NSR, v1, peaked T waves in lateral leads - JOSUE x3 negative - Lasix 20mg IVP, Calcium gluconate, Kayexalate 30mg PO given BRONSON- resolved - Cr. 1.8 on admission--> 1.1 History of Constipation - Enulose 20gm Po Q12H PRN History of GERD - Protonix 40mg PO daily History of Osteomyelitis/R 2nd toe amputation Tylenol 650 PRN pain Prophylaxis - Heparin 5000 units Q8H - Protonix 40mg po daily - SCDs - Physical Therapy Case discussed with Dr. Carline Beverly PGY-2
[2018-12-19 07:52] LABS: BASO % 0.6 % (0.0-2.0); EOS # 0.3 K/uL (0.0-0.7); EOS % 3.8 % (0.0-4.0); HEMOGLOBIN 10.7 g/dL (12.0-18.0); LYMPH % 37.8 % (20.0-40.0); MEAN CORPUSCULAR HEMOGLOBIN 29.7 pg (27.0-31.0); MEAN CORPUSCULAR HGB CONC 33.8 g/dL (33.0-37.0); MEAN PLATELET VOLUME 7.1 fL (7.2-11.7); MONO # 0.7 K/uL (0.0-0.8); MONO % 9.5 % (0.0-10.0); NEUT # 3.8 K/uL (1.8-7.0); NEUT % 48.3 % (50.0-75.0); RBC 3.59 Mil/uL (4.40-5.90); RED CELL DISTRIBUTION WIDTH 13.8 % (11.5-14.5); WHITE BLOOD COUNT 7.9 K/uL (4.8-10.8)
[2018-12-19] MEDS: Ranolazine 500 mg Extended Release Tablets PO SCH ×2 (08:59→18:00)
[2018-12-19] MEDS: Metoprolol Succinate 25 mg XL Tab PO SCH (09:00)
[2018-12-19 11:59] LABS: ALB/GLOB RATIO 1.1 (1.0-2.1); ALBUMIN 3.4 g/dL (3.5-5.0); ALT/SGPT 10 U/L (21-72); AST/SGOT 16 U/L (17-59); BLOOD UREA NITROGEN 25 mg/dL (9-20); CALCIUM 8.7 mg/dl (8.6-10.4); GFR NON-AFRICAN AMERICAN > 60
[2018-12-19] MEDS: Insulin Detemir 100 units/ml Vial (Levemir) SC SCH (22:03)
--- NOTE | 2018-12-19 22:37 | CP.PCM.PN ---
Subjective - Date & Time of Evaluation Date of Evaluation: 12/19/18 Time of Evaluation: 18:20 - Subjective Subjective: Patient was seen and examined at bedside. intermittent chest pains/reproducible Objective - Constitutional Appears: No Acute Distress - Head Exam Head Exam: ATRAUMATIC, NORMAL INSPECTION - Eye Exam Eye Exam: EOMI, Normal appearance - ENT Exam ENT Exam: Mucous Membranes Moist - Respiratory Exam Respiratory Exam: Clear to Ausculation Bilateral, NORMAL BREATHING PATTERN - Cardiovascular Exam Cardiovascular Exam: REGULAR RHYTHM, +S1, +S2 - GI/Abdominal Exam GI & Abdominal Exam: Soft, Normal Bowel Sounds. absent: Tenderness - Extremities Exam Extremities Exam: Normal Inspection - Neurological Exam Neurological Exam: Alert, Awake, Oriented x3 - Psychiatric Exam Psychiatric exam: Normal Affect, Normal Mood - Skin Skin Exam: Normal Color Assessment and Plan - Assessment and Plan (Free Text) Assessment: 58 year old male admitted for hyperkalemia, BRONSON, and hyperglycemia; BRONSON, hyperkalemia, hyperglycemia resolved who presented to the ER for chest pain. Plan: Chest pain - troponins x 4 negative - hx of CAD w/ 3 stents - ProBNP 354 - ECHO (12/18/18): EF 48%; Left ventricular function is normal. No regional wall motion abnormalities noted. - Cardiology Consult: Dr. Sotelo --> help appreciated * Nuclear Stress Test 12/21/18 * NPO after midnight 12/20/18 History of CAD with stent placement * Nuclear Stress Test 12/21/18 * NPO after midnight 12/20/18 - Medications: * Aspirin 81mg daily * Plavix 75mg daily * isosorbide mononitrate 60mg daily * Ranolazine 500mg PO BID History of Diabetes Type II - Blood gas pH 7.31, Bicarb 22, B-hydroxybutyrate negative - Medications: * Levemir 40u SC HS * Novolog 5units SC TIDAC * Regular Insulin ACHS - Accuchecks achs - Hypogylycemia protocol History of HTN - Metoprolol succinate 25mg QD History of HLD - Continue Ezetimibe 10mg PO daily Hyperkalemia -resolved - 7.1 on admission--> 4.6 - EKG: NSR, v1, peaked T waves in lateral leads - JOSUE x3 negative - Lasix 20mg IVP, Calcium gluconate, Kayexalate 30mg PO given BRONSON- resolved - Cr. 1.8 on admission--> 1.1 History of Constipation - Enulose 20gm Po Q12H PRN History of GERD - Protonix 40mg PO daily History of Osteomyelitis/R 2nd toe amputation Tylenol 650 PRN pain Prophylaxis - Heparin 5000 units Q8H - Protonix 40mg po daily - SCDs - Physical Therapy Objective - Vital Signs/Intake and Output Vital Signs (last 24 hours): Temp Pulse Resp BP Pulse Ox 98.2 F 83 20 163/79 H 98 12/19/18 15:00 12/19/18 16:00 12/19/18 15:00 12/19/18 15:00 12/19/18 15:00 - Medications Medications: Current Medications Acetaminophen (Tylenol 325mg Tab) 650 mg PO Q6 PRN PRN Reason: Pain, moderate (4-7) Last Admin: 12/18/18 05:58 Dose: 650 mg Albuterol/Ipratropium (Duoneb 3 Mg/0.5 Mg (3 Ml) Ud) 3 ml INH RQ4 PRN PRN Reason: Shortness of Breath Aspirin (Aspirin Chewable) 81 mg PO DAILY [facility] Last Admin: 12/19/18 08:59 Dose: 81 mg Clopidogrel Bisulfate (Plavix) 75 mg PO DAILY [facility] Last Admin: 12/19/18 08:59 Dose: 75 mg Dextrose (Dextrose 50% Inj) 0 ml IV STAT PRN; Protocol PRN Reason: Hypoglycemia Protocol Dextrose (Glutose 15) 0 gm PO ONCE PRN; Protocol PRN Reason: Hypoglycemia Protocol Ezetimibe (Zetia) 10 mg PO DAILY [facility] Last Admin: 12/19/18 08:59 Dose: 10 mg Glucagon (Glucagen Diagnostic Kit) 0 mg IM STAT PRN; Protocol PRN Reason: Hypoglycemia Protocol Heparin Sodium (Porcine) (Heparin) 5,000 units SC Q8 [facility] Last Admin: 12/19/18 22:05 Dose: Not Given Dextrose (Dextrose 5% In Water 1000 Ml) 1,000 mls @ 0 mls/hr IV .Q0M PRN; Protocol PRN Reason: Hypoglycemia Protocol Insulin Aspart (Novolog) 5 unit SC TIDAC [facility] Last Admin: 12/19/18 16:59 Dose: 5 units Insulin Aspart (Novolog) 0 unit SC Q4 [facility]; Protocol Last Admin: 12/19/18 20:01 Dose: Not Given Insulin Detemir (Levemir) 40 unit SC HS [facility] Last Admin: 12/19/18 22:03 Dose: 40 units Isosorbide Mononitrate (Imdur) 60 mg PO DAILY [facility] Last Admin: 12/19/18 09:00 Dose: 60 mg Lactulose (Enulose) 20 gm PO Q12H PRN PRN Reason: Constipation Metoprolol Succinate (Toprol Xl) 25 mg PO DAILY [facility] Last Admin: 12/19/18 09:00 Dose: 25 mg Ranolazine (Ranexa) 500 mg PO BID [facility] Last Admin: 12/19/18 18:00 Dose: 500 mg - Labs Labs: 12/19/18 07:46 12/19/18 11:15 PT 10.9 SECONDS (9.7-12.2) 12/18/18 02:16 INR 1.0 12/18/18 02:16 APTT 38 SECONDS (21-34) H 12/18/18 02:16
[2018-12-20] MEDS: (Novolog) Insulin Aspart, Recombinant 100 u/ml 10 ml vial SC SCH ×3 (00:35→08:42)
--- NOTE | 2018-12-20 07:30 | CP.PCM.PN ---
Subjective - Date & Time of Evaluation Date of Evaluation: 12/20/18 Time of Evaluation: 08:00 - Subjective Subjective: Medicine Progress Note for Dr. Crowley's Service: Patient was seen and examined at bedside in the AM. Per nurse patient's fasting blood sugar was 80 this morning and after breakfast it resulted as 125. Patient states he is feeling well. Patient denies chest pain, shortness of breath, nausea, vomiting, diarrhea, constipation, fever or chills. Objective - Vital Signs/Intake and Output Vital Signs (last 24 hours): Temp Pulse Resp BP Pulse Ox 98.4 F 74 20 158/74 H 98 12/20/18 00:22 12/20/18 03:50 12/20/18 00:22 12/20/18 00:22 12/20/18 00:22 Intake and Output: 12/20/18 12/20/18 06:59 18:59 Intake Total 480 Balance 480 - Medications Medications: Current Medications Acetaminophen (Tylenol 325mg Tab) 650 mg PO Q6 PRN PRN Reason: Pain, moderate (4-7) Last Admin: 12/18/18 05:58 Dose: 650 mg Albuterol/Ipratropium (Duoneb 3 Mg/0.5 Mg (3 Ml) Ud) 3 ml INH RQ4 PRN PRN Reason: Shortness of Breath Aspirin (Aspirin Chewable) 81 mg PO DAILY [facility] Last Admin: 12/19/18 08:59 Dose: 81 mg Clopidogrel Bisulfate (Plavix) 75 mg PO DAILY [facility] Last Admin: 12/19/18 08:59 Dose: 75 mg Dextrose (Dextrose 50% Inj) 0 ml IV STAT PRN; Protocol PRN Reason: Hypoglycemia Protocol Dextrose (Glutose 15) 0 gm PO ONCE PRN; Protocol PRN Reason: Hypoglycemia Protocol Ezetimibe (Zetia) 10 mg PO DAILY [facility] Last Admin: 12/19/18 08:59 Dose: 10 mg Glucagon (Glucagen Diagnostic Kit) 0 mg IM STAT PRN; Protocol PRN Reason: Hypoglycemia Protocol Heparin Sodium (Porcine) (Heparin) 5,000 units SC Q8 [facility] Last Admin: 12/20/18 06:09 Dose: Not Given Dextrose (Dextrose 5% In Water 1000 Ml) 1,000 mls @ 0 mls/hr IV .Q0M PRN; Protocol PRN Reason: Hypoglycemia Protocol Insulin Aspart (Novolog) 5 unit SC TIDAC [facility] Last Admin: 12/19/18 16:59 Dose: 5 units Insulin Aspart (Novolog) 0 unit SC Q4 [facility]; Protocol Last Admin: 12/20/18 04:10 Dose: Not Given Insulin Detemir (Levemir) 40 unit SC HS [facility] Last Admin: 12/19/18 22:03 Dose: 40 units Isosorbide Mononitrate (Imdur) 60 mg PO DAILY [facility] Last Admin: 12/19/18 09:00 Dose: 60 mg Lactulose (Enulose) 20 gm PO Q12H PRN PRN Reason: Constipation Metoprolol Succinate (Toprol Xl) 25 mg PO DAILY [facility] Last Admin: 12/19/18 09:00 Dose: 25 mg Ranolazine (Ranexa) 500 mg PO BID [facility] Last Admin: 12/19/18 18:00 Dose: 500 mg - Labs Labs: 12/19/18 07:46 12/19/18 11:15 PT 10.9 SECONDS (9.7-12.2) 12/18/18 02:16 INR 1.0 12/18/18 02:16 APTT 38 SECONDS (21-34) H 12/18/18 02:16 - Constitutional Appears: No Acute Distress - Head Exam Head Exam: ATRAUMATIC, NORMAL INSPECTION - Eye Exam Eye Exam: EOMI, Normal appearance - ENT Exam ENT Exam: Mucous Membranes Moist - Respiratory Exam Respiratory Exam: Clear to Ausculation Bilateral, NORMAL BREATHING PATTERN - Cardiovascular Exam Cardiovascular Exam: REGULAR RHYTHM, +S1, +S2 - GI/Abdominal Exam GI & Abdominal Exam: Soft, Normal Bowel Sounds. absent: Tenderness - Extremities Exam Extremities Exam: Normal Inspection - Neurological Exam Neurological Exam: Alert, Awake, Oriented x3 - Psychiatric Exam Psychiatric exam: Normal Affect - Skin Skin Exam: Normal Color Assessment and Plan - Assessment and Plan (Free Text) Assessment: 58 year old male admitted for hyperkalemia, BRONSON, and hyperglycemia; BRONSON, hyperkalemia, hyperglycemia resolved who presented to the ER for chest pain. Plan: Chest pain - troponins x 4 negative - hx of CAD w/ 3 stents - ProBNP 354 - ECHO (12/18/18): EF 48%; Left ventricular function is normal. No regional wall motion abnormalities noted. - Cardiology Consult: Dr. Sotelo --> help appreciated * Nuclear Stress Test 12/21/18 * NPO after midnight 12/20/18 History of CAD with stent placement - Cardiology Consult: Dr. Sotelo --> help appreciated * Nuclear Stress Test 12/21/18 * NPO after midnight 12/20/18 - Lipid Panel (12/20/18): Triglycerides 308; Total Cholesterol 193; LDL 108; HDL 53 - Medications: * Aspirin 81mg daily * Plavix 75mg daily * isosorbide mononitrate 60mg daily * Ezetimibe 10mg PO daily * Ranolazine 500mg PO BID History of Diabetes Type II - Blood gas pH 7.31, Bicarb 22, B-hydroxybutyrate negative - hA1c (12/20/18) 10.8 - Medications: * Levemir 40u SC HS --> changed to 23units HS (to start 12/21) and Levemir 23units ACB (to start 12/22) * Novolog 5units SC TIDAC --> increased Novolog 2 units TIDAC * Regular Insulin ACHS --> discontinued - Accuchecks achs - Hypogylycemia protocol History of HTN - Metoprolol succinate 25mg QD History of HLD - Lipid Panel (12/20/18): Triglycerides 308; Total Cholesterol 193; LDL 108; HDL 53 - Continue Ezetimibe 10mg PO daily Hyperkalemia -resolved - 7.1 on admission--> 4.6 - EKG: NSR, v1, peaked T waves in lateral leads - JOSUE x3 negative - Lasix 20mg IVP, Calcium gluconate, Kayexalate 30mg PO given BRONSON- resolved - Cr. 1.8 on admission--> 1.1 History of Constipation - Enulose 20gm Po Q12H PRN History of GERD - Protonix 40mg PO daily History of Osteomyelitis/R 2nd toe amputation Tylenol 650 PRN pain Prophylaxis - Heparin 5000 units Q8H - Protonix 40mg po daily - SCDs - Physical Therapy Disposition: Nuclear Stress Test 12/21/18; NPO after midnight 12/20/18 Case to be discussed with Dr. Carline Beverly PGY-2
[2018-12-20] MEDS ORDERED: (Novolog) Insulin Aspart, Recombinant 100 u/ml 10 ml vial SC SCH ×3 (07:38→10:15)
[2018-12-20 08:21] LABS: BASO % 0.5 % (0.0-2.0); EOS # 0.2 K/uL (0.0-0.7); EOS % 3.6 % (0.0-4.0); LYMPH # 1.9 K/uL (1.0-4.3); LYMPH % 30.5 % (20.0-40.0); MEAN CELL VOLUME 87.8 fL (80.0-94.0); MEAN CORPUSCULAR HEMOGLOBIN 30.1 pg (27.0-31.0); MEAN CORPUSCULAR HGB CONC 34.2 g/dL (33.0-37.0); MEAN PLATELET VOLUME 7.1 fL (7.2-11.7); MONO # 0.7 K/uL (0.0-0.8); MONO % 10.6 % (0.0-10.0); NEUT # 3.4 K/uL (1.8-7.0); NEUT % 54.8 % (50.0-75.0); NRBC % 0.1 % (0.0-2.0); RBC 3.31 Mil/uL (4.40-5.90); RED CELL DISTRIBUTION WIDTH 13.8 % (11.5-14.5); WHITE BLOOD COUNT 6.3 K/uL (4.8-10.8)
[2018-12-20 08:48] LABS: ALB/GLOB RATIO 1.1 (1.0-2.1); ALBUMIN 3.7 g/dL (3.5-5.0); ALT/SGPT 9 U/L (21-72); AST/SGOT 31 U/L (17-59); BLOOD UREA NITROGEN 25 mg/dL (9-20); CALCIUM 9.3 mg/dl (8.6-10.4); GFR NON-AFRICAN AMERICAN > 60; HDL CHOLESTEROL 53 mg/dL (30-70)
[2018-12-20 08:52] LABS: LDL CHOLESTEROL 108 mg/dL (0-129)
[2018-12-20] MEDS: Metoprolol Succinate 25 mg XL Tab PO SCH (09:42)
[2018-12-20] MEDS: Ranolazine 500 mg Extended Release Tablets PO SCH ×2 (09:43→17:53)
[2018-12-20] MEDS ORDERED: Insulin Detemir 100 units/ml Vial (Levemir) SC SCH (09:59)
[2018-12-20] MEDS: (Novolin R) Insulin Human Regular 100 units/ml vial SC SCH ×2 (12:59→16:53)
[2018-12-20] MEDS ORDERED: (Novolin R) Insulin Human Regular 100 units/ml vial SC ONE (16:54)
[2018-12-20 17:13] VITALS: RESP 20
[2018-12-20] MEDS ORDERED: (Lantus) Insulin Glargine, Recombinant SC ONE (22:00)
[2018-12-20] MEDS ORDERED: Insulin Detemir 100 units/ml Vial (Levemir) SC ONE (22:00)
--- NOTE | 2018-12-20 22:27 | CP.PCM.PN ---
Subjective - Date & Time of Evaluation Date of Evaluation: 12/20/18 Time of Evaluation: 14:10 - Subjective Subjective: Patient with no further chest pain Hx of CAD and multiple stents For stress test in am Objective - Constitutional Appears: No Acute Distress - Head Exam Head Exam: ATRAUMATIC, NORMAL INSPECTION - Eye Exam Eye Exam: EOMI, Normal appearance - ENT Exam ENT Exam: Mucous Membranes Moist - Respiratory Exam Respiratory Exam: Clear to Ausculation Bilateral, NORMAL BREATHING PATTERN - Cardiovascular Exam Cardiovascular Exam: REGULAR RHYTHM, +S1, +S2 - GI/Abdominal Exam GI & Abdominal Exam: Soft, Normal Bowel Sounds. absent: Tenderness - Extremities Exam Extremities Exam: Normal Inspection - Neurological Exam Neurological Exam: Alert, Awake, Oriented x3 - Psychiatric Exam Psychiatric exam: Normal Affect, Normal Mood - Skin Skin Exam: Normal Color Assessment and Plan - Assessment and Plan (Free Text) Assessment: 58 year old male admitted for hyperkalemia, BRONSON, and hyperglycemia; BRONSON, hyperkalemia, hyperglycemia resolved who presented to the ER for chest pain. Plan: Chest pain - troponins x 4 negative - hx of CAD w/ 3 stents - ProBNP 354 - ECHO (12/18/18): EF 48%; Left ventricular function is normal. No regional wall motion abnormalities noted. * Nuclear Stress Test 12/21/18 * NPO after midnight 12/20/18 History of CAD with stent placement * Nuclear Stress Test 12/21/18 * NPO after midnight 12/20/18 - Medications: * Aspirin 81mg daily * Plavix 75mg daily * isosorbide mononitrate 60mg daily * Ranolazine 500mg PO BID History of Diabetes Type II - Blood gas pH 7.31, Bicarb 22, B-hydroxybutyrate negative - Medications: * Levemir 40u SC HS * Novolog 5units SC TIDAC * Regular Insulin ACHS - Accuchecks achs - Hypogylycemia protocol History of HTN - Metoprolol succinate 25mg QD History of HLD - Continue Ezetimibe 10mg PO daily Hyperkalemia -resolved - 7.1 on admission--> 4.6 - EKG: NSR, v1, peaked T waves in lateral leads - JOSUE x3 negative - Lasix 20mg IVP, Calcium gluconate, Kayexalate 30mg PO given BRONSON- resolved - Cr. 1.8 on admission--> 1.1 History of Constipation - Enulose 20gm Po Q12H PRN History of GERD - Protonix 40mg PO daily History of Osteomyelitis/R 2nd toe amputation Tylenol 650 PRN pain Prophylaxis - Heparin 5000 units Q8H - Protonix 40mg po daily - SCDs - Physical Therapy Objective - Vital Signs/Intake and Output Vital Signs (last 24 hours): Temp Pulse Resp BP Pulse Ox 98.1 F 81 20 167/76 H 97 12/20/18 15:00 12/20/18 16:00 12/20/18 15:00 12/20/18 15:00 12/20/18 15:00 - Medications Medications: Current Medications Acetaminophen (Tylenol 325mg Tab) 650 mg PO Q6 PRN PRN Reason: Pain, moderate (4-7) Last Admin: 12/18/18 05:58 Dose: 650 mg Albuterol/Ipratropium (Duoneb 3 Mg/0.5 Mg (3 Ml) Ud) 3 ml INH RQ4 PRN PRN Reason: Shortness of Breath Aspirin (Aspirin Chewable) 81 mg PO DAILY [facility] Last Admin: 12/20/18 09:42 Dose: 81 mg Clopidogrel Bisulfate (Plavix) 75 mg PO DAILY [facility] Last Admin: 12/20/18 09:43 Dose: 75 mg Dextrose (Dextrose 50% Inj) 0 ml IV STAT PRN; Protocol PRN Reason: Hypoglycemia Protocol Dextrose (Glutose 15) 0 gm PO ONCE PRN; Protocol PRN Reason: Hypoglycemia Protocol Ezetimibe (Zetia) 10 mg PO DAILY [facility] Last Admin: 12/20/18 09:42 Dose: 10 mg Glucagon (Glucagen Diagnostic Kit) 0 mg IM STAT PRN; Protocol PRN Reason: Hypoglycemia Protocol Heparin Sodium (Porcine) (Heparin) 5,000 units SC Q8 [facility] Last Admin: 12/20/18 13:50 Dose: Not Given Dextrose (Dextrose 5% In Water 1000 Ml) 1,000 mls @ 0 mls/hr IV .Q0M PRN; Protocol PRN Reason: Hypoglycemia Protocol Insulin Detemir (Levemir) 23 unit SC HS [facility] Insulin Detemir (Levemir) 23 unit SC ACB [facility] Insulin Human Regular (Novolin R) 2 unit SC ACTID [facility] Last Admin: 12/20/18 16:53 Dose: 2 unit Isosorbide Mononitrate (Imdur) 60 mg PO DAILY [facility] Last Admin: 12/20/18 09:42 Dose: 60 mg Lactulose (Enulose) 20 gm PO Q12H PRN PRN Reason: Constipation Metoprolol Succinate (Toprol Xl) 25 mg PO DAILY [facility] Last Admin: 12/20/18 09:42 Dose: 25 mg Ranolazine (Ranexa) 500 mg PO BID [facility] Last Admin: 12/20/18 17:53 Dose: 500 mg - Labs Labs: 12/20/18 08:15 12/20/18 08:15 PT 10.9 SECONDS (9.7-12.2) 12/18/18 02:16 INR 1.0 12/18/18 02:16 APTT 38 SECONDS (21-34) H 12/18/18 02:16
[2018-12-21] MEDS ORDERED: (Novolin R) Insulin Human Regular 100 units/ml vial SC ONE ×2 (02:29→07:06)
--- NOTE | 2018-12-21 07:47 | CP.PCM.PN ---
Subjective - Date & Time of Evaluation Date of Evaluation: 12/21/18 Time of Evaluation: 07:45 - Subjective Subjective: Medicine progress note for Dr. Crowley Patient seen and examined at bedside. Patient lying in bed, resting comfortably, offers no complaints. Patient is NPO for nuclear stress test today. Denies headaches, chest pain, SOB, abdominal pain, dysuria, hematuria, constipation, diarrhea. Objective - Vital Signs/Intake and Output Vital Signs (last 24 hours): Temp Pulse Resp BP Pulse Ox 97.7 F 80 20 158/70 H 98 12/20/18 23:40 12/21/18 03:50 12/20/18 23:40 12/20/18 23:40 12/20/18 23:40 Intake and Output: 12/21/18 12/21/18 06:59 18:59 Intake Total 400 Balance 400 - Medications Medications: Current Medications Acetaminophen (Tylenol 325mg Tab) 650 mg PO Q6 PRN PRN Reason: Pain, moderate (4-7) Last Admin: 12/18/18 05:58 Dose: 650 mg Albuterol/Ipratropium (Duoneb 3 Mg/0.5 Mg (3 Ml) Ud) 3 ml INH RQ4 PRN PRN Reason: Shortness of Breath Aspirin (Aspirin Chewable) 81 mg PO DAILY [facility] Last Admin: 12/20/18 09:42 Dose: 81 mg Clopidogrel Bisulfate (Plavix) 75 mg PO DAILY [facility] Last Admin: 12/20/18 09:43 Dose: 75 mg Dextrose (Dextrose 50% Inj) 0 ml IV STAT PRN; Protocol PRN Reason: Hypoglycemia Protocol Dextrose (Glutose 15) 0 gm PO ONCE PRN; Protocol PRN Reason: Hypoglycemia Protocol Ezetimibe (Zetia) 10 mg PO DAILY [facility] Last Admin: 12/20/18 09:42 Dose: 10 mg Glucagon (Glucagen Diagnostic Kit) 0 mg IM STAT PRN; Protocol PRN Reason: Hypoglycemia Protocol Heparin Sodium (Porcine) (Heparin) 5,000 units SC Q8 [facility] Last Admin: 12/21/18 06:53 Dose: Not Given Dextrose (Dextrose 5% In Water 1000 Ml) 1,000 mls @ 0 mls/hr IV .Q0M PRN; Protocol PRN Reason: Hypoglycemia Protocol Insulin Detemir (Levemir) 23 unit SC HS [facility] Insulin Detemir (Levemir) 23 unit SC ACB [facility] Insulin Human Regular (Novolin R) 2 unit SC ACTID [facility] Last Admin: 12/20/18 16:53 Dose: 2 unit Isosorbide Mononitrate (Imdur) 60 mg PO DAILY [facility] Last Admin: 12/20/18 09:42 Dose: 60 mg Lactulose (Enulose) 20 gm PO Q12H PRN PRN Reason: Constipation Metoprolol Succinate (Toprol Xl) 25 mg PO DAILY [facility] Last Admin: 12/20/18 09:42 Dose: 25 mg Ranolazine (Ranexa) 500 mg PO BID [facility] Last Admin: 12/20/18 17:53 Dose: 500 mg - Labs Labs: 12/20/18 08:15 12/20/18 08:15 PT 10.9 SECONDS (9.7-12.2) 12/18/18 02:16 INR 1.0 12/18/18 02:16 APTT 38 SECONDS (21-34) H 12/18/18 02:16 - Constitutional Appears: Non-toxic, No Acute Distress - Head Exam Head Exam: NORMAL INSPECTION - Eye Exam Eye Exam: EOMI, Normal appearance - ENT Exam ENT Exam: Mucous Membranes Moist - Respiratory Exam Respiratory Exam: Clear to Ausculation Bilateral, NORMAL BREATHING PATTERN. absent: Rales, Rhonchi, Wheezes - Cardiovascular Exam Cardiovascular Exam: +S1, +S2. absent: Tachycardia - GI/Abdominal Exam GI & Abdominal Exam: Soft, Normal Bowel Sounds. absent: Firm, Guarding, Rigid - Extremities Exam Extremities Exam: absent: Calf Tenderness, Pedal Edema Additional comments: R foot, wrapped in ronnell, with walking brace s/p osteomyolitis - Neurological Exam Neurological Exam: Alert, Awake, Oriented x3 - Psychiatric Exam Psychiatric exam: Normal Affect, Normal Mood - Skin Skin Exam: Dry, Intact, Normal Color, Warm Assessment and Plan - Assessment and Plan (Free Text) Assessment: 58 year old male admitted for hyperkalemia, BRONSON, and hyperglycemia; BRONSON, hyperkalemia, hyperglycemia resolved, currently cardio eval for chest pain Plan: Chest pain Hx of CAD w/ stents Pain currently reproducible, msk vs cardiac origin - troponins x 3 negative - ProBNP 354 - ECHO (12/18/18): EF 48%; Left ventricular function is normal. No regional wall motion abnormalities noted. - F/u Dr. Deepak recs - F/u nuclear stress test 12/21 Hx CAD with stent placement - c/w home med Aspirin 81mg daily - c/w home med Plavix 75mg daily - c/w home med isosorbide mononitrate 60mg daily - c/w home med Ranolazine 500mg PO BID - lipid panel Triglycerides 308; Total Cholesterol 193; LDL 108; HDL 53 Hyperglycemia Hx of DM - Blood sugars overnight > 500 - 8 units novolin R given - Resume levemir 23 units ACB & HS - Human Regular 2 units ACTID - Novolin R sliding scale achs - Accuchecks achs - Hypogylycemia protocol - 09/09 NS @ 100 mls/hr Hx HTN - c/w home med Metoprolol succinate 25mg QD Hx HLD - c/w home med Ezetimibe 10mg PO daily - lipid panel Triglycerides 308; Total Cholesterol 193; LDL 108; HDL 53 Hx Constipation - c/w home med Enulose 20gm Po Q12H PRN Hx GERD - c/w home med Protonix 40mg PO daily Hx Osteomyelitis/R 2nd toe amputation - Tylenol 650 PRN pain Hyperkalemia-resolved - 7.1 on admission--> 4.6 - EKG: NSR, v1, peaked T waves in lateral leads - JOSUE x3 negative - Lasix 20mg IVP, Calcium gluconate, Kayexalate 30mg PO given BRONSON-resolved - Cr. 1.8 on admission--> 1.5 - 1/2NS @ 100mls/hr - 2 L bolus given in ED PPx - Heparin 5000u Q8H - HH/CCD
[2018-12-21 07:56] LABS: BASO % 0.5 % (0.0-2.0); EOS # 0.2 K/uL (0.0-0.7); EOS % 2.7 % (0.0-4.0); HEMOGLOBIN 11.2 g/dL (12.0-18.0); LYMPH # 1.7 K/uL (1.0-4.3); LYMPH % 23.1 % (20.0-40.0); MEAN CELL VOLUME 89.5 fL (80.0-94.0); MEAN CORPUSCULAR HEMOGLOBIN 28.7 pg (27.0-31.0); MEAN CORPUSCULAR HGB CONC 32.1 g/dL (33.0-37.0); MEAN PLATELET VOLUME 7.2 fL (7.2-11.7); MONO # 0.6 K/uL (0.0-0.8); NEUT # 4.7 K/uL (1.8-7.0); NEUT % 64.7 % (50.0-75.0); RBC 3.91 Mil/uL (4.40-5.90); WHITE BLOOD COUNT 7.2 K/uL (4.8-10.8)
[2018-12-21] MEDS ORDERED: Caffeine Citrated **INJ** 20 MG/ML IV ONE (07:56)
[2018-12-21 08:11] LABS: ALB/GLOB RATIO 1.3 (1.0-2.1); ALBUMIN 4.4 g/dL (3.5-5.0); ALT/SGPT 16 U/L (21-72); AST/SGOT 29 U/L (17-59); BLOOD UREA NITROGEN 34 mg/dL (9-20); CALCIUM 9.7 mg/dl (8.6-10.4); GFR NON-AFRICAN AMERICAN 57
[2018-12-21] MEDS: Ranolazine 500 mg Extended Release Tablets PO SCH ×2 (09:56→17:29)
[2018-12-21] MEDS: Metoprolol Succinate 25 mg XL Tab PO SCH (09:57)
[2018-12-21] MEDS: (Novolin R) Insulin Human Regular 100 units/ml vial SC SCH ×6 (09:58→22:38)
[2018-12-21] MEDS ORDERED: Insulin Detemir 100 units/ml Vial (Levemir) SC SCH ×2 (09:59→22:00)
[2018-12-21] MEDS: Sodium Chloride 0.45% 1,000 ML IV SCH ×2 (14:54→21:55)
--- NOTE | 2018-12-21 17:05 | CARD ---
APPROVED REPORT Date of service: 12/21/2018 Protocol: LEXISCAN Test Type: LEXISCAN STRESS Test Indications: HYPERKALMIA Medical History: cp Target HR: 163 bpm Resting ECG: normal Resting Heart Rate: 69 bpm Resting Blood Pressure: 126/80mmHg submaximum (85%): 139 bpm TEST SUMMARY PREINFSNHYPERV.10:[id number]/80.0. INFUSIONDOSE 100:300.00.01.068/.0. [id number]/80.0. PROCEDURE Pharmacologic stress testing was performed using 0.4mg per 5ml of regadenoson given intravenously over 7-10 seconds. POST EXERCISE Target HR: No Max HR: 68 bpm 46% of Maximum Predicted HR: 163 bpm Exercise duration: 00:30 min:sec, 0 Stage Exercise capacity: 1.0METs Max Blood Pressure: 128/80mmHg Chest Pain: No, none Angina index: 0 Arrhythmia: No, none ST Change: No, none Deviation: 0 mm INTERPRETATION Stress EKG Conclusion: Nondiagnostic stress test EXAM: Myocardial Perfusion REST/STRESS Imaging Protocol The imaging protocol used to acquire images was Rest Tc-99m/stress Tc-99m 1 day Rest Spect myocardial perfusion imaging was performed in supine position 45 minutes following the injection of 12.8 mCi of Tc-99 Myoview. Gated Stress Spect was performed 45 minutes after intravenous 32.2 mCi Tc-99 Myoview injection. The images were gated to evaluate regional wall motion and calculate ventricular ejection fraction.Images were reconstructed using backfilter projection method in short horizontal and verticle long axis. Spect slices were generated. RESTING DATA USS902.12jtWJ6.90L/min ESV47.00mlMyocardial Pkzi543.00g Av. Heart Rate75.00bpm EF58.00% STRESS DATA HDH823.09cjHV1.00L/min ESV55.00mlMyocardial Huyr347.00g EF56.00% Regional WT score at stress:2.00 Regional WM score at stress:2.00 Summed WT score at stress:15.00 Av. Heart Rate73.00bpmSummed WM score at stress:15.00 LV Perf. Quant 17 Seg. SSS0.00 17 Seg. SRS1.00 17 Seg. SDS0.00 Stress Defect Extent (% LAD)0.00Rest Defect Extent (% LAD)0.00Rev. Defect Extent (% LAD)0.00 Stress Defect Extent (% LCX)0.00Rest Defect Extent (% LCX)0.00Rev. Defect Extent (% LCX)0.00 Stress Defect Extent (% RCA)0.00Rest Defect Extent (% RCA)0.00Rev. Defect Extent (% RCA)0.00 Stress Defect Extent (% ANNETTE)0.00Rest Defect Extent (% ANNETTE)0.00Rev. Defect Extent (% ANNETTE)0.00 Left Ventricle LV Size/Shape: The left ventricle is normal size. LV Function:Left ventricle systolic function is normal. The Ejection Fraction is 56% down from 58% at rest. Regional Wall Motion:No regional wall motion abnormalities noted. Metabolism/Perfusion Reversible/Irreversible: no significant ischemia. Conclusion 1. Left ventricle systolic function is normal. 2. The Ejection Fraction is 56% down from 58% at rest. 3. No regional wall motion abnormalities noted. 4. no significant ischemia.
--- NOTE | 2018-12-21 21:20 | CP.PCM.PN ---
Subjective - Date & Time of Evaluation Date of Evaluation: 12/21/18 Time of Evaluation: 21:18 - Subjective Subjective: Patient s/p stress test Normal lexiscan nuclear stress test No further cardiac work up at this time Thanks Objective - Constitutional Appears: No Acute Distress - Head Exam Head Exam: ATRAUMATIC, NORMAL INSPECTION - Eye Exam Eye Exam: EOMI, Normal appearance - ENT Exam ENT Exam: Mucous Membranes Moist - Respiratory Exam Respiratory Exam: Clear to Ausculation Bilateral, NORMAL BREATHING PATTERN - Cardiovascular Exam Cardiovascular Exam: REGULAR RHYTHM, +S1, +S2 - GI/Abdominal Exam GI & Abdominal Exam: Soft, Normal Bowel Sounds. absent: Tenderness - Extremities Exam Extremities Exam: Normal Inspection - Neurological Exam Neurological Exam: Alert, Awake, Oriented x3 - Psychiatric Exam Psychiatric exam: Normal Affect, Normal Mood - Skin Skin Exam: Normal Color Assessment and Plan - Assessment and Plan (Free Text) Assessment: 58 year old male admitted for hyperkalemia, BRONSON, and hyperglycemia; BRONSON, hyperkalemia, hyperglycemia resolved who presented to the ER for chest pain. Plan: Chest pain - troponins x 4 negative - hx of CAD w/ 3 stents - ProBNP 354 - ECHO (12/18/18): EF 48%; Left ventricular function is normal. No regional wall motion abnormalities noted. * Nuclear Stress Test Normal History of CAD with stent placement * Nuclear Stress Test 12/21/18 * NPO after midnight 12/20/18 - Medications: * Aspirin 81mg daily * Plavix 75mg daily * isosorbide mononitrate 60mg daily * Ranolazine 500mg PO BID History of Diabetes Type II - Blood gas pH 7.31, Bicarb 22, B-hydroxybutyrate negative - Medications: * Levemir 40u SC HS * Novolog 5units SC TIDAC * Regular Insulin ACHS - Accuchecks achs - Hypogylycemia protocol History of HTN - Metoprolol succinate 25mg QD History of HLD - Continue Ezetimibe 10mg PO daily Hyperkalemia -resolved - 7.1 on admission--> 4.6 - EKG: NSR, v1, peaked T waves in lateral leads - JOSUE x3 negative - Lasix 20mg IVP, Calcium gluconate, Kayexalate 30mg PO given BRONSON- resolved - Cr. 1.8 on admission--> 1.1 History of Constipation - Enulose 20gm Po Q12H PRN History of GERD - Protonix 40mg PO daily History of Osteomyelitis/R 2nd toe amputation Tylenol 650 PRN pain Prophylaxis - Heparin 5000 units Q8H - Protonix 40mg po daily - SCDs - Physical Therapy Objective - Vital Signs/Intake and Output Vital Signs (last 24 hours): Temp Pulse Resp BP Pulse Ox 97.6 F 83 20 145/85 96 12/21/18 15:10 12/21/18 16:00 12/21/18 15:10 12/21/18 15:10 12/21/18 15:10 Intake and Output: 12/21/18 12/22/18 18:59 06:59 Intake Total 600 Balance 600 - Medications Medications: Current Medications Acetaminophen (Tylenol 325mg Tab) 650 mg PO Q6 PRN PRN Reason: Pain, moderate (4-7) Last Admin: 12/18/18 05:58 Dose: 650 mg Albuterol/Ipratropium (Duoneb 3 Mg/0.5 Mg (3 Ml) Ud) 3 ml INH RQ4 PRN PRN Reason: Shortness of Breath Aspirin (Aspirin Chewable) 81 mg PO DAILY [facility] Last Admin: 12/21/18 09:57 Dose: 81 mg Clopidogrel Bisulfate (Plavix) 75 mg PO DAILY [facility] Last Admin: 12/21/18 09:57 Dose: 75 mg Dextrose (Dextrose 50% Inj) 0 ml IV STAT PRN; Protocol PRN Reason: Hypoglycemia Protocol Dextrose (Glutose 15) 0 gm PO ONCE PRN; Protocol PRN Reason: Hypoglycemia Protocol Ezetimibe (Zetia) 10 mg PO DAILY [facility] Last Admin: 12/21/18 09:57 Dose: 10 mg Glucagon (Glucagen Diagnostic Kit) 0 mg IM STAT PRN; Protocol PRN Reason: Hypoglycemia Protocol Heparin Sodium (Porcine) (Heparin) 5,000 units SC Q8 [facility] Last Admin: 12/21/18 14:43 Dose: 5,000 units Dextrose (Dextrose 5% In Water 1000 Ml) 1,000 mls @ 0 mls/hr IV .Q0M PRN; Protocol PRN Reason: Hypoglycemia Protocol Sodium Chloride (Sodium Chloride 0.45%) 1,000 mls @ 100 mls/hr IV .Q10H [facility] Last Admin: 12/21/18 14:54 Dose: 100 mls/hr Insulin Detemir (Levemir) 23 unit SC HS [facility] Insulin Detemir (Levemir) 23 unit SC ACB [facility] Insulin Human Regular (Novolin R) 2 unit SC ACTID [facility] Last Admin: 12/21/18 17:28 Dose: 2 unit Insulin Human Regular (Novolin R) 0 unit SC Q6H [facility]; Protocol Last Admin: 12/21/18 16:28 Dose: 4 units Isosorbide Mononitrate (Imdur) 60 mg PO DAILY [facility] Last Admin: 12/21/18 09:57 Dose: 60 mg Lactulose (Enulose) 20 gm PO Q12H PRN PRN Reason: Constipation Metoprolol Succinate (Toprol Xl) 25 mg PO DAILY [facility] Last Admin: 12/21/18 09:57 Dose: 25 mg Ranolazine (Ranexa) 500 mg PO BID [facility] Last Admin: 12/21/18 17:29 Dose: 500 mg - Labs Labs: 12/21/18 07:46 12/21/18 07:46 PT 10.9 SECONDS (9.7-12.2) 12/18/18 02:16 INR 1.0 12/18/18 02:16 APTT 38 SECONDS (21-34) H 12/18/18 02:16
[2018-12-22 03:43] VITALS: O2SAT 98
[2018-12-22] MEDS: (Novolin R) Insulin Human Regular 100 units/ml vial SC SCH ×5 (03:51→12:30)
[2018-12-22] MEDS: Sodium Chloride 0.45% 1,000 ML IV SCH ×2 (05:50→09:31)
--- NOTE | 2018-12-22 06:45 | CP.PCM.PN ---
Objective - Vital Signs/Intake and Output Vital Signs (last 24 hours): Temp Pulse Resp BP Pulse Ox 97.8 F 69 20 188/89 H 98 12/21/18 23:35 12/22/18 03:57 12/21/18 23:35 12/21/18 23:35 12/21/18 23:35 Intake and Output: 12/21/18 12/22/18 18:59 06:59 Intake Total 600 800 Balance 600 800 - Medications Medications: Current Medications Acetaminophen (Tylenol 325mg Tab) 650 mg PO Q6 PRN PRN Reason: Pain, moderate (4-7) Last Admin: 12/18/18 05:58 Dose: 650 mg Albuterol/Ipratropium (Duoneb 3 Mg/0.5 Mg (3 Ml) Ud) 3 ml INH RQ4 PRN PRN Reason: Shortness of Breath Aspirin (Aspirin Chewable) 81 mg PO DAILY REPLACED BY [facility] Last Admin: 12/21/18 09:57 Dose: 81 mg Clopidogrel Bisulfate (Plavix) 75 mg PO DAILY REPLACED BY [facility] Last Admin: 12/21/18 09:57 Dose: 75 mg Dextrose (Dextrose 50% Inj) 0 ml IV STAT PRN; Protocol PRN Reason: Hypoglycemia Protocol Dextrose (Glutose 15) 0 gm PO ONCE PRN; Protocol PRN Reason: Hypoglycemia Protocol Ezetimibe (Zetia) 10 mg PO DAILY REPLACED BY [facility] Last Admin: 12/21/18 09:57 Dose: 10 mg Glucagon (Glucagen Diagnostic Kit) 0 mg IM STAT PRN; Protocol PRN Reason: Hypoglycemia Protocol Heparin Sodium (Porcine) (Heparin) 5,000 units SC Q8 REPLACED BY [facility] Last Admin: 12/22/18 05:45 Dose: 5,000 units Dextrose (Dextrose 5% In Water 1000 Ml) 1,000 mls @ 0 mls/hr IV .Q0M PRN; Protocol PRN Reason: Hypoglycemia Protocol Sodium Chloride (Sodium Chloride 0.45%) 1,000 mls @ 100 mls/hr IV .Q10H REPLACED BY [facility] Last Admin: 12/22/18 05:50 Dose: 100 mls/hr Insulin Detemir (Levemir) 23 unit SC HS REPLACED BY [facility] Last Admin: 12/21/18 22:38 Dose: 23 units Insulin Detemir (Levemir) 23 unit SC ACB REPLACED BY [facility] Insulin Human Regular (Novolin R) 2 unit SC ACTID REPLACED BY [facility] Last Admin: 12/21/18 17:28 Dose: 2 unit Insulin Human Regular (Novolin R) 0 unit SC ACHS REPLACED BY [facility]; Protocol Isosorbide Mononitrate (Imdur) 60 mg PO DAILY REPLACED BY [facility] Last Admin: 12/21/18 09:57 Dose: 60 mg Lactulose (Enulose) 20 gm PO Q12H PRN PRN Reason: Constipation Metoprolol Succinate (Toprol Xl) 25 mg PO DAILY REPLACED BY [facility] Last Admin: 12/21/18 09:57 Dose: 25 mg Ranolazine (Ranexa) 500 mg PO BID REPLACED BY [facility] Last Admin: 12/21/18 17:29 Dose: 500 mg - Labs Labs: 12/21/18 07:46 12/21/18 07:46 PT 10.9 SECONDS (9.7-12.2) 12/18/18 02:16 INR 1.0 12/18/18 02:16 APTT 38 SECONDS (21-34) H 12/18/18 02:16
[2018-12-22 07:16] LABS: BASO % 0.6 % (0.0-2.0); EOS # 0.3 K/uL (0.0-0.7); EOS % 3.1 % (0.0-4.0); LYMPH # 2.1 K/uL (1.0-4.3); LYMPH % 26.1 % (20.0-40.0); MEAN CORPUSCULAR HEMOGLOBIN 30.1 pg (27.0-31.0); MEAN CORPUSCULAR HGB CONC 34.2 g/dL (33.0-37.0); MEAN PLATELET VOLUME 7.2 fL (7.2-11.7); MONO # 0.8 K/uL (0.0-0.8); MONO % 9.9 % (0.0-10.0); NEUT % 60.3 % (50.0-75.0); RBC 3.33 Mil/uL (4.40-5.90); RED CELL DISTRIBUTION WIDTH 13.9 % (11.5-14.5); WHITE BLOOD COUNT 8.2 K/uL (4.8-10.8)
[2018-12-22] MEDS ORDERED: Insulin Detemir 100 units/ml Vial (Levemir) SC SCH (07:30)
[2018-12-22 07:52] VITALS: BP 124/62; TEMP 98.1
[2018-12-22 08:06] LABS: ALB/GLOB RATIO 1.2 (1.0-2.1); ALBUMIN 3.8 g/dL (3.5-5.0); ALT/SGPT 30 U/L (21-72); AST/SGOT 33 U/L (17-59); BLOOD UREA NITROGEN 36 mg/dL (9-20); CALCIUM 9.1 mg/dl (8.6-10.4); GFR NON-AFRICAN AMERICAN 57
[2018-12-22] MEDS: Ranolazine 500 mg Extended Release Tablets PO SCH (09:30)
[2018-12-22] MEDS: Metoprolol Succinate 25 mg XL Tab PO SCH (09:30)
[2018-12-22 14:50] VITALS: PULSE 76
--- NOTE | 2018-12-22 16:06 | CP.PCM.DIS ---
Provider - Provider Date of Admission: 12/17/18 18:17 Attending physician: Leander Crowley Jr, MD Primary care physician: Dr. Crowley Consults: 12/17/18 20:09 Cardiology Consult Routine Comment: Consulting Provider: Roel Sotelo Consulting Physician: Roel Sotelo Reason for Consult: hyperkalemia, chest pain, hx CAD with multiple stents Time Spent in preparation of Discharge (in minutes): 40 Diagnosis - Discharge Diagnosis (1) Chest pain Status: Acute Comment: s/p nuclear stress test, normal, likely MSK related (2) Acute renal failure Status: Acute Comment: IVF, resolved (3) Hyperkalemia Status: Acute Comment: normalized with lasix, insulin. Hospital Course - Lab Results Lab Results: Most Recent Lab Values WBC 8.2 K/uL (4.8-10.8) 12/22/18 07:11 RBC 3.33 Mil/uL (4.40-5.90) L 12/22/18 07:11 Hgb 10.0 g/dL (12.0-18.0) L 12/22/18 07:11 Hct 29.3 % (35.0-51.0) L 12/22/18 07:11 MCV 88.0 fL (80.0-94.0) 12/22/18 07:11 MCH 30.1 pg (27.0-31.0) 12/22/18 07:11 MCHC 34.2 g/dL (33.0-37.0) 12/22/18 07:11 RDW 13.9 % (11.5-14.5) 12/22/18 07:11 Plt Count 343 K/uL (130-400) 12/22/18 07:11 MPV 7.2 fL (7.2-11.7) 12/22/18 07:11 Neut % (Auto) 60.3 % (50.0-75.0) 12/22/18 07:11 Lymph % (Auto) 26.1 % (20.0-40.0) 12/22/18 07:11 Graham % (Auto) 9.9 % (0.0-10.0) 12/22/18 07:11 Eos % (Auto) 3.1 % (0.0-4.0) 12/22/18 07:11 Baso % (Auto) 0.6 % (0.0-2.0) 12/22/18 07:11 Neut # (Auto) 5.0 K/uL (1.8-7.0) 12/22/18 07:11 Lymph # (Auto) 2.1 K/uL (1.0-4.3) 12/22/18 07:11 Graham # (Auto) 0.8 K/uL (0.0-0.8) 12/22/18 07:11 Eos # (Auto) 0.3 K/uL (0.0-0.7) 12/22/18 07:11 Baso # (Auto) 0.0 K/uL (0.0-0.2) 12/22/18 07:11 PT 10.9 SECONDS (9.7-12.2) 12/18/18 02:16 INR 1.0 12/18/18 02:16 APTT 38 SECONDS (21-34) H 12/18/18 02:16 pO2 44 mm/Hg (30-55) 12/17/18 17:34 VBG pH 7.31 (7.32-7.43) L 12/17/18 17:34 VBG pCO2 40 mmHg (40-60) 12/17/18 17:34 VBG HCO3 19.8 mmol/L 12/17/18 17:34 VBG Total CO2 21.3 mmol/L (22-28) L 12/17/18 17:34 VBG O2 Sat (Calc) 81.5 % (40-65) H 12/17/18 17:34 VBG Base Excess -5.8 mmol/L (0.0-2.0) L 12/17/18 17:34 VBG Potassium 7.0 mmol/L (3.6-5.2) H* 12/17/18 17:34 Sodium 132.0 mmol/l (132-148) 12/17/18 17:34 Chloride 103.0 mmol/L (98-107) 12/17/18 17:34 Glucose 517 mg/dl (75-110) H* 12/17/18 17:34 Lactate 1.4 mmol/L (0.7-2.1) 12/17/18 17:34 Crit Value Called To Dr daily 12/17/18 17:34 Crit Value Called By Jason vora 12/17/18 17:34 Crit Value Read Back Y 12/17/18 17:34 Blood Gas Notified Time 1737 12/17/18 17:34 Sodium 133 mmol/L (132-148) 12/22/18 07:11 Potassium 4.1 mmol/L (3.6-5.2) 12/22/18 07:11 Chloride 101 mmol/L (98-107) 12/22/18 07:11 Carbon Dioxide 22 mmol/L (22-30) 12/22/18 07:11 Anion Gap 14 (10-20) 12/22/18 07:11 BUN 36 mg/dL (9-20) H 12/22/18 07:11 Creatinine 1.3 mg/dL (0.8-1.5) 12/22/18 07:11 Est GFR ( Amer) > 60 12/22/18 07:11 Est GFR (Non-Af Amer) 57 12/22/18 07:11 POC Glucose (mg/dL) 233 mg/dL (65-110) H 12/22/18 06:31 Random Glucose 237 mg/dL (75-110) H D 12/22/18 07:11 Hemoglobin A1c 10.8 % (4.2-6.5) H 12/20/18 08:15 Calcium 9.1 mg/dl (8.6-10.4) 12/22/18 07:11 Phosphorus 4.1 mg/dL (2.5-4.5) 12/22/18 07:11 Magnesium 1.8 mg/dL (1.6-2.3) 12/22/18 07:11 Total Bilirubin 0.2 mg/dL (0.2-1.3) 12/22/18 07:11 AST 33 U/L (17-59) 12/22/18 07:11 ALT 30 U/L (21-72) 12/22/18 07:11 Alkaline Phosphatase 123 U/L (38-126) 12/22/18 07:11 Total Creatine Kinase 57 U/L (55-170) 12/18/18 07:31 CK-MB (Mass) 1.49 ng/mL (0.0-3.38) 12/18/18 07:31 Troponin I < 0.0120 ng/mL (0.00-0.120) 12/18/18 07:31 NT-Pro-B Natriuret Pep 354 pg/mL (0-900) 12/18/18 17:00 Total Protein 7.0 g/dL (6.3-8.3) 12/22/18 07:11 Albumin 3.8 g/dL (3.5-5.0) 12/22/18 07:11 Globulin 3.2 gm/dL (2.2-3.9) 12/22/18 07:11 Albumin/Globulin Ratio 1.2 (1.0-2.1) 12/22/18 07:11 Triglycerides 308 mg/dL (0-149) H 12/20/18 08:15 Cholesterol 193 mg/dL (0-199) 12/20/18 08:15 LDL Cholesterol Direct 108 mg/dL (0-129) 12/20/18 08:15 HDL Cholesterol 53 mg/dL (30-70) 12/20/18 08:15 Venous Blood Potassium 7.0 mmol/L (3.6-5.2) H* 12/17/18 17:34 B-Hydroxybutyrate 0.09 mM (0.02-0.27) 12/17/18 17:18 - Hospital Course Hospital Course: HPI: 58 year old male with PMHx of HTN, HLD, CAD with multiple stents, and uncontrolled DM sent to ED by Dr. Crowley due to abnormal lab work taken one day ago. Potassium was noted to be 7.1. Patient states while he was in the ED he had a 2 minute episode of sharp chest pain going across his left chest to the right side. Pain resolved on its own. It was associated with SOB, diaphoresis and felt like previous episodes of chest pain that he's had on several occasions in the past which resulted in cardiac categorizations and stent placements. Patient also complains of chills, headache for the past week, intermittent dizziness, and palpitations today. Patient denies nausea, vomiting, diarrhea, constipation, dysuria, hematuria, new leg swelling, focal weakness, numbness. Patient reports 12 year history of uncontrolled blood sugars that range from 80-600. He also reports [place] [facility] [place] for chest pain and osteomyelitis of R 2nd toe, which was amputated. He was told then that he needed an additional catheterization and stent placement after his infection resolved. A few days after being discharged [place] [facility], he again felt chest pain and was taken to [facility] where he was found to have and treated for pleural effusion. He had been at [facility] for the last few weeks and discharged to home on 12/15/18. During stay, patient hyperkalemia and BRONSON was resolved with fluids and lasix, kaxeacylate, insulin. Patient had persistent reproducible chest pain. Cardio performed nuclear stress test. Patient stable from cardio stand point. Patient elevated blood sugars manage with insulin. Above is only a summary of patient stay during hospitalization. See EMR for full details. See Below for instructions provided upon discharge. Patient is stable for discharge per Dr. Crowley. Patient should follow up with Dr. Crowley within 1 week upon discharge. . Patient should follow up with Dr. Sotelo within 1 week upon discharge. Patient should resume all home medications as prescribed by Dr. Crowley. If any symptoms return, please return to nearest emergency medical facility. Discharge Exam - Head Exam Head Exam: NORMAL INSPECTION - Eye Exam Eye Exam: EOMI, Normal appearance - ENT Exam ENT Exam: Mucous Membranes Moist - Neck Exam Neck exam: Full Rom - Respiratory Exam Respiratory Exam: Clear to PA & Lateral, UNREMARKABLE. absent: Rales, Rhonchi, Wheezes - Cardiovascular Exam Cardiovascular Exam: +S1, +S2. absent: Systolic Murmur - GI/Abdominal Exam GI & Abdominal Exam: Normal Bowel Sounds, Soft, Unremarkable. absent: Distended, Firm, Tenderness - Extremities Exam Additional comments: no calf tenderness, no pedal edema - Back Exam Back exam: absent: CVA tenderness (L), CVA tenderness (R) - Neurological Exam Neurological exam: Alert, Oriented x3 - Psychiatric Exam Psychiatric exam: Normal Affect, Normal Mood - Skin Skin Exam: Dry, Intact, Normal Color, Warm Discharge Plan - Follow Up Plan Condition: GUARDED Disposition: HOME/ ROUTINE Instructions: Hyperkalemia, Hyperglycemia, Adult, Heart Healthy Diet, Hyperkalemia (DC), Diabetes Diet , Low Salt Diet Additional Instructions: Patient is stable for discharge per Dr. Crowley. Patient should follow up with Dr. Crowley within 1 week upon discharge. . Patient should follow up with Dr. Sotelo within 1 week upon discharge. Patient should resume all home medications as prescribed by Dr. Crowley. If any symptoms return, please return to nearest emergency medical facility. Referrals: Roel Sotelo MD [Staff Provider] - 1 Week Leander Crowley Jr., MD [Medical Doctor] - 1 Week
== END 2018-12-22 15:38 | disposition home or self-care (01) | DRG 641 ==
LOC: C.ER 16:17 → C.9E 18:17 → C.6T 18:38
PROVIDERS: ADMIT Internal Medicine; ATTEND Internal Medicine
DX: E87.5 Hyperkalemia (principal); N17.9 Acute kidney failure, unspecified; R07.89 Other chest pain; I25.10 Atherosclerotic heart disease of native coronary artery without angina pectoris; I10 Essential (primary) hypertension; E10.65 Type 1 diabetes mellitus with hyperglycemia; E78.5 Hyperlipidemia, unspecified; K21.9 Gastro-esophageal reflux disease without esophagitis; K59.09 Other constipation; E78.00 Pure hypercholesterolemia, unspecified; Z79.4 Long term (current) use of insulin; Z89.421 Acquired absence of other right toe(s); Z95.5 Presence of coronary angioplasty implant and graft; Z87.891 Personal history of nicotine dependence; Z98.42 Cataract extraction status, left eye; Z82.49 Family history of ischemic heart disease and other diseases of the circulatory system; Z83.3 Family history of diabetes mellitus